=== PATIENT | male | born 1960 | race Caucasian/White ===

== ENCOUNTER 2021-07-19 09:16 | Day surgery (SDC) | payer BC, SELFPAY ==
[2021-07-18 07:16] VITALS: BMI 25.1
--- NOTE | 2021-07-19 09:55 | ANES.PREANE2 ---
Pre-Anesthetic Assessment Height/Weight: Height 1.78 m Weight 79.379 kg Preop Diagnosis: diagnostic Operation Date: 07/19/21 10:45 Proposed Procedures p EGD 82010/22492/r10.12 LEFT UPPER QUAD PAIN/12.11(Not Applicable) - Thai Samuel MD s Colonoscopy 65979(Not Applicable) - Thai Samuel MD Familial anesthetic complications: PONV Last intake: > 8 hrs Social No alcohol and No tobacco Exam alert, oriented x 3, clear to auscultation bilaterally and regular rate & rhythm Airway Mallampati: Class II Dentition: full Pulmonary Collapsed lung as teenager (spontaneous ptx) CV/HEM None reported None reported Hepatic None reported GI Sensitive stomach Metabolic None reported Musc/skel None reported Neuropsych None reported Anesthetic Plan ASA status: 1 Anesthesia: MAC Risk of > 500 ml blood loss (7ml/kg in children): No Medications/Allergies Home Medications Medication Instructions Recorded Confirmed Last Taken Type tamsulosin 0.4 mg capsule 0.4 mg PO DAILY 06/16/21 07/18/21 Unknown History Allergies Allergy/AdvReac Type Severity Reaction Status Date / Time No Known Allergies Allergy Unverified 06/16/21 09:35 [facility] Anesthesia Medical History Hyperlipidemia Surgical History History of colonoscopy History of inguinal hernia repair, bilateral Social History Smoking and tobacco status: never smoked Data Anesthesia Cardiac Studies: No Data to Display
[2021-07-19 10:11] VITALS: BP 110/82; PULSE 80; RESP 18; TEMP 36; O2SAT 96
[2021-07-19] MEDS: sodium chloride 0.9% 1,000 ML 30 ML IV (10:24)
--- NOTE | 2021-07-19 10:37 | PC.NURSE ---
tap water enema given per Dr Samuel, 700mL, pt had BM within 2 to 5 min after enema was given
--- NOTE | 2021-07-19 11:08 | W.PM.OPSFHP ---
Same Day Surgery H&P Indication for Procedure/HPI DATE OF PROCEDURE: July 19, 2021 CHIEF COMPLAINT/INDICATIONFOR SURGICAL PROCEDURE: eg/colon PREOP DIAGNOSIS: diagnostic PLANNED PROCEDURE: Operation Date: 07/19/21 10:45 Proposed Procedures p EGD 70187/80263/r10.12 LEFT UPPER QUAD PAIN/12.11(Not Applicable) - Thai Samuel MD s Colonoscopy 60363(Not Applicable) - Thai Samuel MD Medications/Allergies* Home Medications Medication Instructions Recorded Confirmed Type tamsulosin 0.4 mg capsule 0.4 mg PO DAILY 06/16/21 07/19/21 History Allergies/Adverse Reactions Allergy/AdvReac Type Severity Reaction Status Date / Time No Known Allergies Allergy Unverified 06/16/21 09:35 Current Medications: Generic Name Dose Route Start Last Admin Trade Name Freq PRN Reason Stop Dose Admin Sodium Chloride 1,000 mls @ 30 mls/hr 07/19/21 09:30 07/19/21 10:24 Sodium Chloride 0.9% IV 07/20/21 09:29 30 mls/hr .Q24H TIEN Administration Pertinent History/Comorbid Conditions* Medical History (Updated 06/16/21 @ 09:48 by Thai Samuel MD) Hyperlipidemia Surgical History (Updated 06/16/21 @ 09:48 by Thai Samuel MD) History of colonoscopy History of inguinal hernia repair, bilateral Social History Smoking and tobacco status: never smoked Pertinent Exam Findings alert, oriented x 3 and regular rate & rhythm Recommendations Surgery/Procedure today Coding Level of Care Code Acute Blackjack Dealer for Garret Lopez
[2021-07-19 11:29] VITALS: BP 113/82; PULSE 72; RESP 18; TEMP 36.1; O2SAT 94
[2021-07-19 11:45] VITALS: BP 127/79; PULSE 66; RESP 16; O2SAT 97
--- NOTE | 2021-07-19 12:00 | ANE.PACU2 ---
Inpatient post-anesthesia follow up: Airway intact: Yes Vital signs: Temperature 97 F Pulse Rate 66 Respiratory Rate 16 Blood Pressure 127/79 Pulse Oximetry 97 Oxygen Delivery Me thod Room Air Oxygen Flow Rate Fraction of Inspir ed Oxygen Hydration adequate: Yes Nausea and vomiting: No Pain level: 1 Mental status: Baseline
== END 2021-07-19 12:05 | disposition home or self-care (01) ==
PROVIDERS: PCP Family Medicine; Visit Provider Surgery
PROC: 0DJ08ZZ Inspection of Upper Intestinal Tract, Via Natural or Artificial Opening Endoscopic (ICD-10-PCS; CPT 43235; principal; 2021-07-19 10:45)
PROC: 0DJD8ZZ Inspection of Lower Intestinal Tract, Via Natural or Artificial Opening Endoscopic (ICD-10-PCS; CPT 45378; 2021-07-19 10:45)
DX: R10.12 Left upper quadrant pain (principal); E78.5 Hyperlipidemia, unspecified; K57.30 Diverticulosis of large intestine without perforation or abscess without bleeding; K29.70 Gastritis, unspecified, without bleeding
CPT/HCPCS: 43239; 45378; 88305; 88342; J2704; J7030

== ENCOUNTER → 2021-10-05 16:28 | Outpatient (BNVA) | payer BC, SELFPAY | PROVIDERS: PCP Family Medicine; Visit Provider Family Medicine | DX: R10.11 Right upper quadrant pain (principal) | CPT/HCPCS: 80053; 83690; 85025 ==

== ENCOUNTER 2021-10-06 17:02 | Outpatient (CLI) | payer BC, SELFPAY ==
--- NOTE | 2021-10-06 17:08 | USR_ITS ---
PROCEDURE INFORMATION: Exam: US Abdomen, Limited; Right Upper Quadrant Exam date and time: 10/06/2021 5:13 PM Age: 61 years old Clinical indication: Abdominal pain; Acute; Additional info: Abdomen pain right upper quadrant TECHNIQUE: Imaging protocol: Real time ultrasound of the abdomen with image documentation. Limited exam focused on the right upper quadrant. COMPARISON: No relevant prior studies available. FINDINGS: Liver: Normal. No masses. Gallbladder: Punctate cholelithiasis and debris noted in the gallbladder neck. There is no gallbladder wall thickening. Biliary ducts: Normal. No stones. No dilation. Pancreas: Visualized pancreas is unremarkable. Right kidney: The right kidney measures 9.1 cm in length. Renal cortical echogenicity is within normal limits. No mass. No hydronephrosis. US/US abdomen limited [id number] IMPRESSION: Punctate cholelithiasis and debris noted in the gallbladder neck. No sonographic findings to suggest acute cholecystitis.
== END 2021-10-06 17:03 | disposition home or self-care (01) ==
LOC: RAD 17:04
PROVIDERS: PCP Family Medicine; Visit Provider Family Medicine
DX: K80.20 Calculus of gallbladder without cholecystitis without obstruction (principal); R10.11 Right upper quadrant pain
CPT/HCPCS: 76705

== ENCOUNTER → 2021-10-10 11:27 | Outpatient (BNVA) | payer BC, SELFPAY | PROVIDERS: PCP Family Medicine; Visit Provider Family Medicine | DX: R10.11 Right upper quadrant pain (principal) | CPT/HCPCS: 80053; 83690; 85025 ==

== ENCOUNTER → 2021-10-12 12:02 | Outpatient (BNVA) | payer BC, SELFPAY | PROVIDERS: PCP Family Medicine; Visit Provider Family Medicine | DX: R10.11 Right upper quadrant pain (principal) | CPT/HCPCS: 80053 ==

== ENCOUNTER 2021-10-19 12:34 | Outpatient (CLI) | payer BC, SELFPAY ==
--- NOTE | 2021-10-19 12:41 | CT_ITS ---
WS: [id number] CT ABDOMEN PELVIS TECHNIQUE: Contrast-enhanced CT of the abdomen and pelvis with coronal and sagittal reformatted image s. CLINICAL INFORMATION: VOMITING/RLQ ABD PAIN/RUQ ABD PAIN COMPARISON: Ultrasound October 06, 2021 DLP: 656.[address] scans at [facility] use at least one of these dose optimization techniques: automated e xposure control; mA and/or kV adjustment per patient size (includes targeted exams where dose is matc hed to clinical indication); or iterative reconstruction. FINDINGS: Mild diffuse gallbladder wall enhancement with slight surrounding induration. Tortuosity and dilatati on of the cystic duct. Findings suspicious for acute cholecystitis. Dilatation of the common hepatic duct and proximal common bile duct. No visualized obstructing calculi but recommend further evaluatio n with MRCP. Common bile duct measures 6 to 7 mm. Tiny calculi described on prior ultrasound are not well visualized. Small amount of edema extending about the pancreatic head and C-loop of the duodenum with fluid likely reactive. Recommend correlation with pancreatic enzyme studies. Circumferential wall thickening with enhancement involving the distal stomach at the antrum extending into the pylorus and proximal duodenum may be related to gastritis/duodenitis. This can be followed up with endoscopy. Lung bases are well aerated. Normal portal vein and splenic vein. Adrenal glands are normal. No hydro nephrosis in either kidney. Normal renal parenchymal enhancement. Bilateral renal cysts. Normal caliber abdominal aorta. Celiac and SMA are patent. Tiny fat-containing umbilical hernia. Appendix RIGHT lower quadrant appears unremarkable. Sigmoid diverticulosis. No evidence of acute radiculitis. CT/CT abdomen pelvis w con* [id number] IMPRESSION: 1. Diffuse gallbladder wall thickening with peripheral enhancement and dilatat ion of the cystic duct suspicious for acute cholecystitis. 2. Mild dilatation of the hepatic duct and proximal common bile duct although no visualized obstructing calculi. Recommend further evaluation with MRCP. 3. Inflammatory stranding and edema about the pancreatic head and C-loop of th e duodenum. Recommend correlation with pancreatic enzymes for pancreatitis. Thi s may be reactive to the gallbladder. 4. Circumferential wall thickening with enhancement involving the distal stoma ch at the antrum extending into the pylorus and proximal duodenum may be relate d to gastritis/duodenitis. This can be followed up with endoscopy. 5. No hydronephrosis. Bilateral renal cysts. 6. Sigmoid diverticulosis. No evidence of acute radiculitis. 7. Enlarged prostate measuring 4.8 cm. Recommend correlation PSA Message LEFT for Bipin Knott MD at 10/19/2021 2:40PM.
[2021-10-19] MEDS: iohexol 300 mg/mL 100 mL Btl IV (13:21)
== END 2021-10-19 12:35 | disposition home or self-care (01) ==
LOC: RAD 12:34
PROVIDERS: PCP Family Medicine; Visit Provider Family Medicine
DX: R11.10 Vomiting, unspecified (principal); R10.31 Right lower quadrant pain; R10.11 Right upper quadrant pain
CPT/HCPCS: 74177

== ENCOUNTER 2021-10-19 16:00 | Inpatient (IN) | payer BC, SELFPAY ==
[2021-10-19 16:15] VITALS: BP 122/82; PULSE 95; RESP 18; TEMP 36.8; O2SAT 95
--- NOTE | 2021-10-19 16:38 | W.ED.ABDPA2 ---
Documented by User: Cameron Bales DO 10/20/21 06:48 HPI - Abdominal Pain General: Chief Complaint: Abdominal Pain Stated Complaint: abd pain Time Seen by Provider: 10/19/21 16:11 Source: patient Mode of arrival: ambulatory Limitations: no limitations History of Present Illness: 61-year-old male presents emergency room complaining of epigastric right upper quadrant abdominal pain. Dr. Jameson had called me about him on before he arrived. They have been evaluating him an outpatient basis for biliary colic. He previously had a imaging study done that was negative his symptoms have been waxing and waning last few weeks with some acholic stools a lot of nausea and vomiting. Last day or 2 it is gotten significantly worse particularly the pain he has not noticed any trigger foods although he has tried to avoid certain foods without any particular success. He denies any medic easy melena hematemesis coffee-ground emesis no dysuria urgency or frequency CT done today showed acute pancreatitis with dilation of the proximal common bile duct and the hepatic duct along with acute cholecystitis. Dr. Knott directed the patient to the emergency room for further evaluation potential surgical consultation pending results of an MRCP MD elicited complaint: abdominal pain Pertinent past history: other (Cholelithiasis, pancreatitis acute cholecystitis) Onset (ago): week(s) Pain Consistency: intermittent Location: RUQ Severity: moderate Quality: cramping Radiation: none Migration to: no migration Exacerbating factors: nothing Relieving factors: nothing Associated Symptoms: Reports change in stool character (Intermittent acholic stools), GI cramping, nausea and vomiting; Denies anorexia, belching, bloating, change in bowel habits, chills, coffee ground emesis, constipation, diarrhea, dyspepsia, dysuria, excessive flatus, fever(s), heartburn, hematochezia, hematuria, hematemesis, fecal incontinence, loose stools, melena, poor appetite and syncope Review of Systems Const: Reports: malaise; Denies: fever(s), chills or fatigue Card: Denies: chest pain, palpitations or syncope GI: Reports: abdominal pain, nausea, vomiting, GI cramping and change in stool character (Intermittent acholic stools); Denies: hematemesis, coffee ground emesis, heartburn, diarrhea, constipation, bloating, belching, excessive flatus, fecal incontinence, change in bowel habits, hematochezia or melena : Denies: flank pain, difficulty urinating, dysuria, urinary frequency, urinary urgency or hematuria PFSH ED PFSH: Medical History Hyperlipidemia Surgical History H/O esophagogastroduodenoscopy (07/19/21) History of colonoscopy (07/19/21) History of inguinal hernia repair, bilateral Family History Other CAD (coronary artery disease) Lymphoma Social History Smoking and tobacco status: never smoked Alcohol intake: former Substance/Drug Use: never Lives independently: Yes Household members: spouse Marital status: Current occupational status: retired Physical Exam Const: GENERAL APPEARANCE: cooperative ORIENTATION/CONSCIOUSNESS: Yes awake, Yes oriented to person, Yes oriented to place and Yes oriented to time HENMT: COMMON NORMALS: normocephalic, atraumatic and hearing grossly normal bilaterally HEAD & SCALP: normocephalic and atraumatic Neck/C-Spine: COMMON NORMALS: no JVD Resp: COMMON NORMALS: normal respiratory effort, No retractions, No use of accessory muscles and clear to auscultation bilaterally AUSCULTATION: clear to auscultation bilaterally Cardio: COMMON NORMALS: no JVD, regular rate, regular rhythm and No murmurs present (Cardio) RATE: regular rate RHYTHM: regular rhythm GI: COMMON NORMALS: No hepatosplenomegaly present AUSCULTATION: Yes normoactive bowel sounds PALPATION: Yes Tenderness to palpation present (GI) Details: RUQ, No Guarding due to palpation present (GI) and Yes No hepatosplenomegaly present Extremity: COMMON NORMALS: normal to inspection, capillary refill normal, no clubbing, cyanosis or edema, no calf tenderness and no pedal edema Neuro: SENSORIUM/ORIENTATION: Yes oriented to person, Yes oriented to place and Yes oriented to time Skin: COMMON NORMALS: no rashes or lesions noted GENERAL SKIN EXAM: no rashes or lesions noted Course Vital Signs: Vital signs: Vital Signs Temperature 98.3 F 10/20/21 04:00 Pulse Rate 72 10/20/21 04:00 Respiratory Rate 18 10/20/21 04:00 Blood Pressure 97/61 10/20/21 04:00 Pulse Oximetry 94 10/20/21 04:00 MDM - Abdominal Pain Medical Decision Making Care signed out to Dr. Jay at change of shift. See final notes for diagnosis and disposition. Patient presents with abdominal pain he is found to have pancreatitis along with cholecystitis. His MRCP here is showed no signs of common bile duct thickening no signs of stone in the duct. I did speak to surgeon on-call along with hospitalist will admit at this time. Lab Data : 10/19/21 16:45 10/19/21 16:45 Labs/Radiology: Radiology Impressions Cholangiopancreatography MRI 10/19/21 16:39 IMPRESSION: 1. Cholelithiasis 2. Cholecystitis 3. No stones are seen in the common bile duct. 4. Suspect pancreatitis. Correlate with appropriate laboratory studies. COMMENTS: Consistent with the [employer]'s Incidental Findings Committee white paper (J Am Lj Radiol 2018): Any incidental renal lesion less than 1 cm or classified as too small to characterize, or any incidental cystic renal lesion characterized as simple-appearing, is likely benign. No follow-up imaging is recommended for these lesions per consensus recommendations based on imaging criteria. Laboratory Results WBC 8.9 10^3/uL (4.0-10.0) 10/19/21 16:45 RBC 5.22 10^6/uL (4.1-5.3) 10/19/21 16:45 Hgb 16.1 g/dL (11.7-16.6) 10/19/21 16:45 Hct 47.0 % (42.0-52.0) 10/19/21 16:45 MCV 90.0 fl (80-94) 10/19/21 16:45 MCH 30.8 pg (28.0-34.0) 10/19/21 16:45 MCHC 34.3 g/dL (30.0-36.0) 10/19/21 16:45 RDW 12.1 % (12.1-15.1) 10/19/21 16:45 Plt Count 315 10^3/cmm (130-400) 10/19/21 16:45 MPV 10.4 fL (7.4-10.4) 10/19/21 16:45 Neut % (Auto) 66.8 % 10/19/21 16:45 Lymph % (Auto) 25.5 % 10/19/21 16:45 Wolfe % (Auto) 6.4 % 10/19/21 16:45 Eos % (Auto) 0.7 % 10/19/21 16:45 Baso % (Auto) 0.3 % 10/19/21 16:45 Neut # (Auto) 5.90 10^3/uL (1.8-7.7) 10/19/21 16:45 Lymph # (Auto) 2.3 10^3/uL (0.8-4.8) 10/19/21 16:45 Wolfe # (Auto) 0.6 10^3/uL (0.2-0.9) 10/19/21 16:45 Eos # (Auto) 0.1 10^3/uL (0.0-0.8) 10/19/21 16:45 Baso # (Auto) 0.0 10^3/uL (0.0-0.1) 10/19/21 16:45 Nucleated RBC % (auto) 0 % 10/19/21 16:45 Nucleated RBCs # 0.0 /100WBC 10/19/21 16:45 Sodium 137 mmol/L (136-145) 10/19/21 16:45 Potassium 4.4 mmol/L (3.5-5.1) 10/19/21 16:45 Chloride 99 mmol/L (98-107) 10/19/21 16:45 Carbon Dioxide 23 mmol/L (22-29) 10/19/21 16:45 Anion Gap 19.4 (5-19) H 10/19/21 16:45 BUN 19 mg/dL (8-23) 10/19/21 16:45 Creatinine 0.9 mg/dL (0.7-1.2) 10/19/21 16:45 GFR Calculation 85.2 mL/min (90-130) L 10/19/21 16:45 Glucose 96 mg/dL (65-115) 10/19/21 16:45 Calculated Osmolality 286 mOsm/kg (285-295) 10/19/21 16:45 Calcium 9.5 mg/dL (8.5-10.5) 10/19/21 16:45 Total Bilirubin 1.4 mg/dL (0.15-1.2) H 10/19/21 16:45 AST 364 U/L (0-40) H 10/19/21 16:45 ALT 682 U/L (0-41) H 10/19/21 16:45 Alkaline Phosphatase 405 IU/L (40-130) H 10/19/21 16:45 Total Protein 7.8 g/dL (6.6-8.7) 10/19/21 16:45 Albumin 4.7 g/dL (3.5-5.2) 10/19/21 16:45 Globulin 3.1 g/dL (1.3-4.6) 10/19/21 16:45 Lipase 2785 U/L (13-60) H 10/19/21 16:45 Urine Color Yellow (Yellow) 10/19/21 16:30 Urine Appearance Clear (CLEAR) 10/19/21 16:30 Urine pH 5 (5-7) 10/19/21 16:30 Ur Specific [place] 1.005 (1.005-1.030) 10/19/21 16:30 Urine Protein Neg (Negative) 10/19/21 16:30 Urine Glucose (UA) Norm (Normal) 10/19/21 16:30 Urine Ketones 2+ (Negative) H 10/19/21 16:30 Urine Blood 2+ (Negative) H 10/19/21 16:30 Urine Nitrate Negative (Negative) 10/19/21 16:30 Urine Bilirubin 1+ (Negative) H 10/19/21 16:30 Urine Urobilinogen 1 mg/dL (Negative) H 10/19/21 16:30 Ur Leukocyte Esterase Negative (Negative) 10/19/21 16:30 Urine RBC 5-10 /hpf (0-2) H 10/19/21 16:30 Urine WBC 0-4 /hpf (0-5) H 10/19/21 16:30 Ur Squamous Epith Cells 0-4 /hpf (0-5) H 10/19/21 16:30 Amorphous Sediment Not Reportable 10/19/21 16:30 Urine Bacteria None /hpf (NONE) 10/19/21 16:30 Discharge Plan Discharge Patient Disposition: Admitted As Inpatient Admit Provider: Douglas Yusuf Clinical Impression: Pancreatitis, Cholecystitis Condition: Stable Coding Level of Care Code ED [place] Management Professor for Chg Fwd Exam Comprehensive Documented by User: Diandra Jay MD 10/19/21 20:22 HPI - Abdominal Pain General: Chief Complaint: Abdominal Pain Stated Complaint: abd pain Time Seen by Provider: 10/19/21 16:11 PFSH ED PFSH: Medical History Hyperlipidemia Surgical History H/O esophagogastroduodenoscopy (07/19/21) History of colonoscopy (07/19/21) History of inguinal hernia repair, bilateral Family History Other CAD (coronary artery disease) Lymphoma Social History Smoking and tobacco status: never smoked Alcohol intake: former Substance/Drug Use: never Lives independently: Yes Household members: spouse Marital status: Current occupational status: retired Course Vital Signs: Vital signs: Vital Signs Temperature 98.3 F 10/20/21 04:00 Pulse Rate 72 10/20/21 04:00 Respiratory Rate 18 10/20/21 04:00 Blood Pressure 97/61 10/20/21 04:00 Pulse Oximetry 94 10/20/21 04:00 MDM - Abdominal Pain Medical Decision Making Patient presents with abdominal pain he is found to have pancreatitis along with cholecystitis. His MRCP here is showed no signs of common bile duct thickening no signs of stone in the duct. I did speak to surgeon on-call along with hospitalist will admit at this time. Lab Data : 10/19/21 16:45 10/19/21 16:45 Labs/Radiology: Radiology Impressions Cholangiopancreatography MRI 10/19/21 16:39
--- NOTE | 2021-10-19 16:39 | MRR_ITS ---
PROCEDURE INFORMATION: Exam: MR Abdomen Without Contrast Exam date and time: 10/19/2021 5:40 PM Age: 61 years old Clinical indication: Abdominal pain; Generalized; Additional info: Dialaiton cbd, cholelithiasis, cholecystitis TECHNIQUE: Imaging protocol: Magnetic resonance imaging of the abdomen without contrast. COMPARISON: CT abdomen pelvis w con* [id number] 10/19/2021 12:49 PM FINDINGS: Liver: There is no focal abnormality within the liver. Gallbladder and bile ducts: There are multiple small gallstones within the gallbladder as seen on prior ultrasound. There is also small stone seen in the cystic duct. Distal common bile duct measures approximately 6 mm is which is not unusual for the patient's age. No common duct stones are identified. There is gallbladder wall thickening up to 6 mm and some minimal pericholecystic fluid. These findings are worrisome for acute cholecystitis. Pancreas: There is some minimal fluid like signal adjacent to the head of the pancreas and along Gerota's fascia on the right. This is worrisome for acute pancreatitis. Please correlate with appropriate laboratory studies. Spleen: The spleen is normal. Adrenal glands: The adrenal glands are normal. Kidneys and ureters: There is a 3 cm sized septated cyst with single thin septation in the anterior left kidney and a 1 cm size cyst in the mid left kidney. There is also a 6 mm benign simple cyst in the right kidney. No further workup recommended. Stomach and bowel: Visualized stomach and intestines are unremarkable. Intraperitoneal space: No free fluid. Vasculature: No abdominal aortic aneurysm. Bones/joints: Unremarkable. Soft tissues: Unremarkable. MR/MR MRCP [id number] IMPRESSION: 1. Cholelithiasis 2. Cholecystitis 3. No stones are seen in the common bile duct. 4. Suspect pancreatitis. Correlate with appropriate laboratory studies. COMMENTS: Consistent with the [employer]'s Incidental Findings Committee white paper (J Am Lj Radiol 2018): Any incidental renal lesion less than 1 cm or classified as too small to characterize, or any incidental cystic renal lesion characterized as simple-appearing, is likely benign. No follow-up imaging is recommended for these lesions per consensus recommendations based on imaging criteria.
[2021-10-19] MEDS: morphine 4 mg/mL SDV 1 mL IVP (16:46)
[2021-10-19] MEDS: sodium chloride 0.9% 1,000 ML 999 ML IV (16:47)
[2021-10-19] MEDS: ondansetron 2 mg/ML SDV 2 mL 4 MG IVP (16:47)
[2021-10-19 16:49] VITALS: BP 117/74; PULSE 94; RESP 16; O2SAT 95
[2021-10-19 17:15] LABS: Basophils % 0.3 %; Eosinophils # 0.1 10^3/uL (0.0-0.8); Eosinophils % 0.7 %; Hemoglobin 16.1 g/dL (11.7-16.6); Lymphocytes # 2.3 10^3/uL (0.8-4.8); Lymphocytes % 25.5 %; Mean Corpuscular HGB Conc 34.3 g/dL (30.0-36.0); Mean Corpuscular Hemoglobin 30.8 pg (28.0-34.0); Mean Platelet Volume 10.4 fL (7.4-10.4); Monocytes # 0.6 10^3/uL (0.2-0.9); Monocytes % 6.4 %; Neutrophils % 66.8 %; Nucleated Red Blood Cells % 0 %; Platelet Count 315 10^3/cmm (130-400); Red Blood Count 5.22 10^6/uL (4.1-5.3); Red Cell Distribution Width 12.1 % (12.1-15.1); White Blood Count 8.9 10^3/uL (4.0-10.0)
[2021-10-19 17:34] LABS: Add Urine Microscopic? YES; Bilirubin Urine 1+ (Negative); Blood Urine 2+ (Negative); Glucose Urine UA Norm (Normal); Ketones Urine 2+ (Negative); Leukocyte Esterase Urine Negative (Negative); Nitrate Urine Negative (Negative); Protein Urine Neg (Negative); Specific Gravity, Urine 1.005 (1.005-1.030); Urine Appearance Clear (CLEAR); Urine Color Yellow (Yellow); Urobilinogen Urine 1 mg/dL (Negative); pH Urine 5 (5-7)
[2021-10-19 17:43] LABS: Alanine Aminotransferase 682 U/L (0-41); Albumin Level 4.7 g/dL (3.5-5.2); Alkaline Phosphatase 405 IU/L (40-130); Anion Gap 19.4 (5-19); Aspartate Amino Transferase 364 U/L (0-40); Blood Urea Nitrogen 19 mg/dL (8-23); Calcium 9.5 mg/dL (8.5-10.5); Carbon Dioxide 23 mmol/L (22-29); Chloride 99 mmol/L (98-107); Globulin 3.1 g/dL (1.3-4.6); Glomerular Filtration Rate 85.2 mL/min (90-130); Glucose 96 mg/dL (65-115); Osmolality Calculated 286 mOsm/kg (285-295); Potassium 4.4 mmol/L (3.5-5.1); Sodium 137 mmol/L (136-145); Total Bilirubin 1.4 mg/dL (0.15-1.2); Total Protein 7.8 g/dL (6.6-8.7)
[2021-10-19 17:49] LABS: Add Urine Culture? No; Squamous Epithelial Cell Urine 0-4 /hpf (0-5); WBC Urine 0-4 /hpf (0-5)
[2021-10-19 17:59] LABS: Lipase 2785 U/L (13-60)
[2021-10-19] MEDS: piperacillin-tazobactam 3.375 GM in sodium chloride 0.9% (plus) 50 ML IV (20:56)
[2021-10-19 21:03] VITALS: BP 107/81; PULSE 65; RESP 16; O2SAT 98
--- NOTE | 2021-10-19 21:26 | PM.HP ---
Providers/Chief Complaint Admitting Physician: Douglas Yusuf Primary Care Provider: Bipin Knott MD Chief Complaint: abd pain History of Present Illness Pleasant 61-year-old gentleman presenting due to recurrent episodes of nausea and vomiting, as well as recurrent episodes of abdominal pain, mostly right upper quadrant, although this morning was also having cramping and lower abdominal pain. He has undergone evaluation at his primary provider's office for biliary colic, had previously undergone ultrasound on 10/06 of right upper quadrant with finding of punctate cholelithiasis and debris noted in the gallbladder neck. No sonographic findings to suggest acute cholecystitis. Earlier today he also had CT abdomen pelvis with finding of diffuse gallbladder wall thickening with peripheral enhancement and dilation of the cystic duct suspicious for acute cholecystitis. Mild ovation of hepatic duct and proximal common bile duct although no visualized obstructing calculi. Recommended MRCP. Inflammatory stranding and edema around pancreatic head and C-loop of the duodenum. Recommend correlation for pancreatitis. Could be reactive secondary to gallbladder. Progression of wall thickening with enhancement involving distal stomach and antrum extending into pylorus and proximal duodenum may be related to gastritis/duodenitis. Can be followed up with endoscopy. No hydronephrosis. Bilateral renal stones. Segmental sclerosis. Enlarged prostate measuring 4.8 cm recommend correlation with PSA. On arrival here in ER additionally underwent blood work, with finding of elevated lipase 2785. Underwent MRCP which showed cholelithiasis, cholecystitis. No stones seen in the common bile duct. Suspected pancreatitis. UA with microscopic hematuria, 5-10 RBC. 1+ bilirubin. 1 urobilinogen. Denies any recent alcohol intake. Has history of heavy alcohol intake when he was young, but not recently. Had 2 large beers when traveling a month ago. Had an episode of vomiting as far back as end of July. Remembers that beginning of July he had upper and lower endoscopy. Review of Systems Const: Denies: fever(s), chills, body aches or malaise Eyes: Denies: change in vision, eye discomfort or eye redness ENMT: Denies: throat pain, oral sores or ear or mastoid pain Card: Denies: chest pain, edema, pre-syncope or dyspnea on exertion Resp: Denies: dyspnea, productive cough, change in phlegm color or hemoptysis GI: Reports: abdominal pain, nausea, vomiting and diarrhea (recurring chronically, sensitive to bad food); Denies: constipation, hematochezia or melena : Denies: flank pain, difficulty urinating, urinary frequency or hematuria Musc: Denies: back pain, joint swelling or joint redness Skin/Breast: Denies: rash or new lesions Neuro: Denies: headache(s), numbness in extremities, weakness in extremities, dizziness, confusion or seizure-like activity Endo: Denies: polyuria or polydipsia Vignesh/Lymph: Denies: easy bleeding or tender lymph nodes All/Imm: Denies: urticaria or tongue swelling Medications/Allergies Home Medications Medication Instructions Recorded Confirmed Last Taken Type tamsulosin 0.4 mg capsule 0.4 mg PO DAILY 06/16/21 10/19/21 07/17/21 History hydrocodone 5 mg-acetaminophen 325 1 tab PO Q4H PRN 10/19/21 10/19/21 Unknown History mg tablet ondansetron HCl 4 mg tablet 4 mg PO Q4H 10/19/21 10/19/21 Unknown History pantoprazole 40 mg tablet,delayed 40 mg PO DAILY 10/19/21 10/19/21 Unknown History release Allergies Allergy/AdvReac Type Severity Reaction Status Date / Time No Known Allergies Allergy Verified 10/19/21 16:59 PFSH Acute PFSH: Medical History Hyperlipidemia Surgical History H/O esophagogastroduodenoscopy (07/19/21) History of colonoscopy (07/19/21) History of inguinal hernia repair, bilateral Family History (Updated 10/19/21 @ 21:30 by Douglas Yusuf MD) Other CAD (coronary artery disease) Lymphoma Social History (Updated 10/19/21 @ 21:30 by Douglas Yusuf MD) Smoking and tobacco status: never smoked Alcohol intake: former Substance/Drug Use: never Lives independently: Yes Household members: spouse Marital status: Current occupational status: retired Vitals/I&O/Wt Last Vital Signs Temp 98.3 F 10/19/21 16:15 Pulse 65 10/19/21 21:03 Resp 16 10/19/21 21:03 BP 107/81 10/19/21 21:03 Pulse Ox 98 10/19/21 21:03 Weight last 48 hrs Weight 78.925 kg Physical Exam Const: COMMON NORMALS: alert GENERAL APPEARANCE: cooperative ORIENTATION/CONSCIOUSNESS: Yes awake HENMT: COMMON NORMALS: normocephalic, EAC's normal, Normal external nose present and moist oral mucous membranes HEAD & SCALP: normocephalic NOSE: Normal external nose present EXTERNAL AUDITORY CANAL: EAC's normal Neck/C-Spine: COMMON NORMALS: no meningeal signs Chest: CHEST: Yes Symmetrical chest wall rise Resp: COMMON NORMALS: clear to auscultation bilaterally AUSCULTATION: clear to auscultation bilaterally Cardio: COMMON NORMALS: regular rate, regular rhythm and No murmurs present (Cardio) RATE: regular rate RHYTHM: regular rhythm GI: COMMON NORMALS: Normal to inspection, nondistended, normoactive bowel sounds present, Soft to palpation and non-tender PALPATION: Yes Soft to palpation and Yes Tenderness to palpation present (GI) Details: RLQ and other (Epigastric) Extremity: COMMON NORMALS: no pedal edema Neuro: COMMON NORMALS: moves all extremities SENSORIUM/ORIENTATION: Yes alert MENINGEAL SIGNS: Yes no meningeal signs Psych: COMMON NORMALS: mental status grossly normal Skin: COMMON NORMALS: no wounds RASHES: no rashes Data : 10/19/21 16:45 10/19/21 16:45 A&P Assessment and plan (1) Cholecystitis: Continue Zosyn. No signs of sepsis at this time. Pending additional surgical evaluation. Status: Acute (2) Pancreatitis: No CBD stones as per MRCP. Additional assessment of management of cholecystitis as above. May have passed stones/sludge. Denies any recent heavy alcohol intake. Discussed with him to avoid alcohol entirely. Has history of heavy alcohol intake in his youth, but not so recently, reports had 2 beers in the last several months. NPO, sips and ice chips for now. Gentle IVF. Pain control, antiemetics. Possibly also some reactive changes secondary to cholecystitis. Is on PPI, had recently had EGD and colonoscopy. We will continue PPI, increased dose for now to twice daily. Status: Acute Attestations Medical Necessity Statement*: Admission of over 2 midnights is anticipated for assessment of management of acute cholecystitis, acute pancreatitis. Coding Level of Care Code Acute Filenet Developer for [facility] Fwd Diagnoses Cholecystitis K81.9 Pancreatitis K85.90
[2021-10-19 21:33] VITALS: BP 124/81; PULSE 64; RESP 17; TEMP 36.5; O2SAT 96
[2021-10-19] MEDS: heparin 5,000 unit/mL INJ 1 mL 5000 UNIT SUBCUT (21:40)
[2021-10-19] MEDS: sodium chloride 0.9% 1,000 ML 75 ML IV (22:40)
[2021-10-19] MEDS: pantoprazole 40 mg SDV IVP (22:59)
[2021-10-20] VITALS (9 sets, daily range): BP systolic 97–113; BP diastolic 61–72; PULSE 60–76; RESP 16–18; TEMP 36.6–36.9; O2SAT 93–97
[2021-10-20] MEDS: piperacillin-tazobactam 3.375 GM in sodium chloride 0.9% (plus) 50 ML IV ×3 (04:22→21:07)
[2021-10-20] MEDS: heparin 5,000 unit/mL INJ 1 mL 5000 UNIT SUBCUT ×3 (05:51→21:13)
--- NOTE | 2021-10-20 06:34 | P.CONIM_ITS ---
Providers/Reason For Consult Consulting Physician/Specialty*: Alfredito Cooper MD Reason for Consult*: Biliary pancreatitis Requesting Physician: Attending Physician: Douglas Yusuf Primary Care Provider: Bipin Knott MD History of Present Illness History of Present Illness Mr. Lalit Cruz is a pleasant 61 year old male presents to the emergency department with intermittent history of nausea and vomiting associated with episodes of abdominal pain mostly in the right upper quadrant. Patient is finding hard time to describe the pain, mostly crampy/dull aching. Does not seem that anything makes it better or worse. Patient denies that the pain is being referred to the back . Yet he does complain of chronic back pain. It seems that the patient has been having ongoing symptoms since last July 2021. Further work-up in the ER was done and showed unremarkable findings regarding laboratory work except for total bilirubin of 1.4, AST 364, ALT 682 and alk phos 405. In addition to a lipase level of 2785. Further imaging was done form of a CT of the abdomen and pelvis with contrast that showed gallbl adder wall thickness and dilation of the cystic duct suspicious for acute cholecystitis. With mild dilation of the hepatic duct and proximal common bile duct without evidence of obstructing stones. In addition to circumferential wall thickening with enhancement involving the distal stomach and the antrum extending to the pylorus and proximal duodenum may be related to gastritis and duodenitis. MRCP was obtained and did show There is also small stone seen in the cystic duct.? Distal common bile duct measures approximately 6 mm is which is not unusual for the patient's age.? 1. Cholelithiasis 2. Cholecystitis 3. No stones are seen in the common bile duct. 4. Suspect pancreatitis. Correlate with appropriate laboratory studies. ? General surgery was consulted for concern of biliary pancreatitis Review of Systems General: Reports: 10 or more systems reviewed and unremarkable except in HPI and below Medications/Allergies Home Medications Medication Instructions Recorded Confirmed Last Taken Type tamsulosin 0.4 mg capsule 0.4 mg PO DAILY 06/16/21 10/19/21 07/17/21 History hydrocodone 5 mg-acetaminophen 325 1 tab PO Q4H PRN 10/19/21 10/19/21 Unknown History mg tablet ondansetron HCl 4 mg tablet 4 mg PO Q4H 10/19/21 10/19/21 Unknown History pantoprazole 40 mg tablet,delayed 40 mg PO DAILY 10/19/21 10/19/21 Unknown History release Allergies Allergy/AdvReac Type Severity Reaction Status Date / Time No Known Allergies Allergy Verified 10/20/21 07:21 Current Medications Generic Name Dose Route Start Last Admin Trade Name Freq PRN Reason Stop Dose Admin Heparin Sodium (Porcine) 5,000 unit 10/19/21 21:45 10/20/21 05:51 Heparin 5,000 Unit/Ml Inj 1 Ml SUBCUT 5,000 unit Q8H TIEN Administration Piperacillin Sod/Tazobactam 50 mls @ 12.5 mls/hr 10/20/21 04:00 10/20/21 04:22 Sod 3.375 gm/ Sodium Chloride IV 12.5 mls/hr Q8H TIEN Administration Protocol Sodium Chloride 1,000 mls @ 75 mls/hr 10/19/21 21:45 10/19/21 22:40 Sodium Chloride 0.9% IV 75 mls/hr .[id number] TIEN Administration Pantoprazole Sodium 40 mg 10/19/21 21:45 10/19/21 22:59 Pantoprazole 40 Mg Sdv IVP 40 mg Q12H TIEN Administration PFSH Acute PFSH: Medical History Hyperlipidemia Surgical History H/O esophagogastroduodenoscopy (07/19/21) History of colonoscopy (07/19/21) History of inguinal hernia repair, bilateral Family History Other CAD (coronary artery disease) Lymphoma Social History Smoking and tobacco status: never smoked Alcohol intake: former Substance/Drug Use: never Lives independently: Yes Household members: spouse Marital status: Current occupational status: retired Vitals/I&O/Wt Last Vital Signs Temp 98.3 F 10/20/21 04:00 Pulse 72 10/20/21 04:00 Resp 18 10/20/21 04:00 BP 97/61 10/20/21 04:00 Pulse Ox 94 10/20/21 04:00 10/19/21 10/19/21 10/20/21 14:59 22:59 06:59 Output Total 600 / 600 Balance -600 / -600 Weight last 48 hrs Weight 173 lb 3.2 oz Weight 174 lb Physical Exam Const: COMMON NORMALS: no acute distress and patient oriented x3 GENERAL APPEARANCE: cooperative ORIENTATION/CONSCIOUSNESS: Yes awake, Yes oriented to person, Yes oriented to place and Yes oriented to time HENMT: COMMON NORMALS: normocephalic HEAD & SCALP: normocephalic Eye: COMMON NORMALS: Equal, round and reactive pupils present and no scleral icterus PUPIL: Yes Equal, round and reactive pupils present Lymph: LYMPHATIC: no lymphadenopathy noted Chest: COMMONS NORMALS: normal inspection of the chest Resp: COMMON NORMALS: normal respiratory effort and clear to auscultation bilaterally AUSCULTATION: clear to auscultation bilaterally Cardio: COMMON NORMALS: S1 normal heart sound present and S2 normal heart sound present; negative for No murmurs present (Cardio) HEART SOUNDS: S1 normal heart sound present and S2 normal heart sound present GI: COMMON NORMALS: Soft to palpation; negative for No hepatosplenomegaly present INSPECTION: Yes normal to inspection PALPATION: Yes Soft to palpation, No Firmness to palpation present (GI), Yes Tenderness to palpation present (GI) Details: RUQ, No Guarding due to palpation present (GI), No Rigid due to palpation and No No hepatosplenomegaly present Neuro: COMMON NORMALS: patient oriented x3 SENSORIUM/ORIENTATION: Yes oriented to person, Yes oriented to place and Yes oriented to time Psych: COMMON NORMALS: mental status grossly normal Skin: COMMON NORMALS: no rashes or lesions noted GENERAL SKIN EXAM: no rashes or lesions noted Data : 10/20/21 06:34 10/20/21 06:34 A&P Assessment and plan (1) Biliary acute pancreatitis: After thorough history after thorough history physical examination and reviewing the images with my personal interpretation of the CT and MRI. Likely the patient does have underlying biliary pancreatitis and associated gastritis duodenitis probably related to the pancreatitis. IV fluid resuscitation, will give a bolus of LR 1 L now.noticed concentrated urine at the bedside in the urinal PPI therapy Repeated physical exam Strict I's and O's We will follow on the lipase trend in LFTs with the plan to perform laparoscopic cholecystectomy during the same hospitalization. Assurance and education All questions have been answered and all concerns have been addressed to patient's satisfaction. You for consulting general surgery to participate taking care of of Mr. Cruz Status: Acute Consult Attestations Medical Necessity Statement: Patient likely will require inpatient hospitalization passing 2 midnights for appropriate resuscitation and repeated physical exam Coding Level of Care Code Acute Regulatory Affairs Coordinator for [facility] Fwd Exam Comprehensive Diagnoses Biliary acute pancreatitis K85.10
[2021-10-20 07:09] LABS: Basophils % 0.5 %; Eosinophils # 0.2 10^3/uL (0.0-0.8); Hematocrit 41.9 % (42.0-52.0); Hemoglobin 14.4 g/dL (11.7-16.6); Lymphocytes # 2.3 10^3/uL (0.8-4.8); Lymphocytes % 29.1 %; Mean Corpuscular HGB Conc 34.4 g/dL (30.0-36.0); Mean Corpuscular Hemoglobin 30.8 pg (28.0-34.0); Mean Corpuscular Volume 89.5 fl (80-94); Mean Platelet Volume 10.4 fL (7.4-10.4); Monocytes # 0.7 10^3/uL (0.2-0.9); Monocytes % 8.2 %; Neutrophils # 4.72 10^3/uL (1.8-7.7); Nucleated Red Blood Cells % 0 %; Platelet Count 261 10^3/cmm (130-400); Red Blood Count 4.68 10^6/uL (4.1-5.3); Red Cell Distribution Width 12.2 % (12.1-15.1)
[2021-10-20 07:29] LABS: Alanine Aminotransferase 443 U/L (0-41); Alkaline Phosphatase 315 IU/L (40-130); Aspartate Amino Transferase 157 U/L (0-40); Blood Urea Nitrogen 18 mg/dL (8-23); Calcium 8.6 mg/dL (8.5-10.5); Carbon Dioxide 25 mmol/L (22-29); Chloride 102 mmol/L (98-107); Globulin 2.7 g/dL (1.3-4.6); Glomerular Filtration Rate 97.6 mL/min (90-130); Glucose 76 mg/dL (65-115); Osmolality Calculated 287 mOsm/kg (285-295); Sodium 138 mmol/L (136-145); Total Bilirubin 1.4 mg/dL (0.15-1.2); Total Protein 6.7 g/dL (6.6-8.7)
[2021-10-20] MEDS: lactated ringers 1,000 ML 999 ML IV (08:00)
[2021-10-20 08:41] LABS: Lipase 1008 U/L (13-60)
--- NOTE | 2021-10-20 09:34 | PM.PN ---
Subjective Subjective: Patient was seen this morning, he tells me he did not get a lot of sleep last night, his abdominal pain Is well controlled, no fevers, no diarrhea Vitals/I&O/Wt Last Vital Signs Temp 97.9 F 10/20/21 08:00 Pulse 66 10/20/21 08:00 Resp 16 10/20/21 08:00 BP 108/67 10/20/21 08:00 Pulse Ox 94 10/20/21 08:00 10/19/21 10/20/21 10/20/21 22:59 06:59 14:59 Intake Total 1050 / 1050 1050 / 1050 Output Total 600 / 600 Balance 1050 / 1050 -600 / 450 1050 / 1050 Weight last 48 hrs Weight 78.562 kg Weight 78.925 kg Physical Exam Const: COMMON NORMALS: no acute distress and patient oriented x3 Resp: COMMON NORMALS: normal respiratory effort, No retractions, No use of accessory muscles and clear to auscultation bilaterally AUSCULTATION: clear to auscultation bilaterally Cardio: COMMON NORMALS: regular rate, regular rhythm, S1 normal heart sound present and S2 normal heart sound present RATE: regular rate RHYTHM: regular rhythm HEART SOUNDS: S1 normal heart sound present and S2 normal heart sound present GI: COMMON NORMALS: Normal to inspection, nondistended, normoactive bowel sounds present and Soft to palpation PALPATION: Yes Soft to palpation Extremity: COMMON NORMALS: no pedal edema Neuro: COMMON NORMALS: patient oriented x3 Psych: COMMON NORMALS: mental status grossly normal Data : 10/20/21 06:34 10/20/21 06:34 A&P Assessment and plan (1) Cholecystitis: Continue Zosyn. No signs of sepsis at this time. Pending additional surgical evaluation. Status: Acute (2) Pancreatitis: No CBD stones as per MRCP. Additional assessment of management of cholecystitis as above. May have passed stones/sludge. Denies any recent heavy alcohol intake. Discussed with him to avoid alcohol entirely. Has history of heavy alcohol intake in his youth, but not so recently, reports had 2 beers in the last several months. NPO, sips and ice chips for now. Gentle IVF. Pain control, antiemetics. Possibly also some reactive changes secondary to cholecystitis. Is on PPI, had recently had EGD and colonoscopy. We will continue PPI, increased dose for now to twice daily. Status: Acute Attestations Medical Necessity Statement*: Patient requires hospitalization for cholecystitis, pancreatitis Coding Level of Care Code Acute Internal Auditor for [facility] Diagnoses Cholecystitis K81.9 Pancreatitis K85.90
[2021-10-20] MEDS: tamsulosin 0.4 mg Capsule PO (10:28)
[2021-10-20] MEDS: pantoprazole 40 mg SDV IVP ×2 (10:28→21:08)
[2021-10-20] MEDS: sodium chloride 0.9% 1,000 ML 75 ML IV (12:14)
[2021-10-20] MEDS: morphine 4 mg/mL SDV 1 mL 2 MG IVP ×2 (17:00→21:09)
[2021-10-21] VITALS (25 sets, daily range): BP systolic 101–142; BP diastolic 64–91; PULSE 64–89; RESP 14–18; TEMP 36.2–36.8; O2SAT 90–97
[2021-10-21] MEDS: sodium chloride 0.9% 1,000 ML 75 ML IV (01:22)
[2021-10-21 03:40] LABS: Basophils % 0.4 %; Eosinophils # 0.3 10^3/uL (0.0-0.8); Eosinophils % 4.5 %; Hematocrit 40.9 % (42.0-52.0); Hemoglobin 13.2 g/dL (11.7-16.6); Lymphocytes # 1.7 10^3/uL (0.8-4.8); Mean Corpuscular HGB Conc 32.3 g/dL (30.0-36.0); Mean Corpuscular Hemoglobin 30.6 pg (28.0-34.0); Mean Corpuscular Volume 94.7 fl (80-94); Mean Platelet Volume 10.4 fL (7.4-10.4); Monocytes # 0.6 10^3/uL (0.2-0.9); Monocytes % 8.8 %; Neutrophils # 4.44 10^3/uL (1.8-7.7); Neutrophils % 61.9 %; Nucleated Red Blood Cells % 0 %; Platelet Count 234 10^3/cmm (130-400); Red Blood Count 4.32 10^6/uL (4.1-5.3); Red Cell Distribution Width 11.9 % (12.1-15.1); White Blood Count 7.2 10^3/uL (4.0-10.0)
[2021-10-21] MEDS: morphine 4 mg/mL SDV 1 mL 2 MG IVP ×3 (03:45→15:47)
[2021-10-21] MEDS: piperacillin-tazobactam 3.375 GM in sodium chloride 0.9% (plus) 50 ML IV ×3 (03:45→20:23)
[2021-10-21 04:00] LABS: Alanine Aminotransferase 277 U/L (0-41); Albumin Level 3.7 g/dL (3.5-5.2); Alkaline Phosphatase 250 IU/L (40-130); Anion Gap 16.8 (5-19); Aspartate Amino Transferase 68 U/L (0-40); Blood Urea Nitrogen 17 mg/dL (8-23); Calcium 8.4 mg/dL (8.5-10.5); Carbon Dioxide 21 mmol/L (22-29); Chloride 102 mmol/L (98-107); Globulin 2.3 g/dL (1.3-4.6); Glomerular Filtration Rate 85.2 mL/min (90-130); Glucose 63 mg/dL (65-115); Osmolality Calculated 282 mOsm/kg (285-295); Potassium 3.8 mmol/L (3.5-5.1); Sodium 136 mmol/L (136-145); Total Bilirubin 1.2 mg/dL (0.15-1.2)
[2021-10-21] MEDS: heparin 5,000 unit/mL INJ 1 mL 5000 UNIT SUBCUT (05:12)
[2021-10-21 06:42] LABS: Lipase 92 U/L (13-60)
[2021-10-21] MEDS: lactated ringers 1,000 ML 125 ML IV ×2 (06:49→21:27)
--- NOTE | 2021-10-21 07:57 | P.PN_ITS ---
Subjective Subjective: Patient overall feels well yet he does complain of right upper quadrant abdominal pain. Trending down in serum lipase and LFTs. Switched fluids to LR at 125 mL/h as patient has concentrated urine Medications: Reviewed: Yes Vitals/I&O/Wt Last Vital Signs Temp 98.0 F 10/21/21 07:24 Pulse 68 10/21/21 07:24 Resp 16 10/21/21 07:24 BP 101/64 10/21/21 07:24 Pulse Ox 97 10/21/21 07:24 10/20/21 10/21/21 10/21/21 22:59 06:59 14:59 Intake Total 50 / 2100 1050 / 3150 Output Total 975 / 1475 450 / 1925 Balance -925 / 625 600 / 1225 Weight last 48 hrs Weight 178 lb 1.6 oz Weight 173 lb 3.2 oz Weight 174 lb Physical Exam Narrative: Patient is conscious alert oriented X3 No apparent distress BMI 26 Head and neck examination PERRLA no masses no cervical lymphadenopathy no jaundice Abdomen nontender except at the right upper quadrant nondistended soft no organomegaly guarding or rigidity/no signs of peritonitis Extremities no cyanosis no clubbing no edema Data : 10/21/21 03:14 10/21/21 03:14 A&P Assessment and plan (1) Biliary acute pancreatitis: Plan of care; After thorough history physical examination and reviewing the chart and images with my personal intrepreatation.I counseled the patient for laparoscopic cholecystectomy possible open, indications risks including but not limited injury to the common bile duct and/or other viscera,that may require potential future surgical interventions including but not limited to ERCP and or lapa ratomy that may include Hepatobiliary surgery.Benefits and alternatives all discussed with the patient, and patient did agree to proceed accordingly. Patient understands that he has a higher risk of complications due to acuity of the condition associated with pancreatitis. All questions have been answered and all concerns have been addressed to patient's satisfaction. Rationale was carefully and clearly discussed with the patient.Appropriate informed consent have been reviewed and signed. You for consulting general surgery to participate taking care of of Mr. Cruz Status: Acute Attestations Medical Necessity Statement*: Patient requiring inpatient hospitalization for medical and surgical management Coding Level of Care Code Acute National Insurance Officer for [facility] Diagnoses Biliary acute pancreatitis K85.10
[2021-10-21] MEDS: pantoprazole 40 mg SDV IVP ×2 (08:24→21:26)
[2021-10-21] MEDS: tamsulosin 0.4 mg Capsule PO (08:27)
[2021-10-21] MEDS: acetaminophen 1,000 MG/100 ML PIGGYBACK 400 MG IV (10:36)
[2021-10-21] MEDS: sodium chloride 0.9% 1,000 ML 30 ML IV (10:37)
--- NOTE | 2021-10-21 12:04 | P.ANESASSM_ITS ---
Pre-Anesthetic Assessment Height/Weight: Height 1.78 m Weight 80.785 kg Temp Pulse Resp BP Pulse Ox 98.3 F 71 18 124/75 97 10/21/21 10:30 10/21/21 10:30 10/21/21 10:30 10/21/21 10:30 10/21/21 10:30 Preop Diagnosis: Biliary pancreatitis Operation Date: 10/21/21 11:40 Proposed Procedures p Laparoscopic Cholecystectomy(Right) - Alfredito Cooper MD Familial anesthetic complications: none, PONV Was Beta Tere taken within 24 hours: N/A Was Clonidine taken within 24 hours: N/A Social No alcohol and No tobacco Exam alert, oriented x 3, clear to auscultation bilaterally and regular rate & rhythm Airway Submandibular: within normal limits Cervical ROM: within normal limits Mallampati: Class II Dentition: full History/ROS No significant history except as noted GI Gastroesophageal Reflux Disease Acute randal Anesthetic Plan ASA status: 2 Anesthesia: General Medications/Allergies Home Medications Medication Instructions Recorded Confirmed Last Taken Type tamsulosin 0.4 mg capsule 0.4 mg PO DAILY 06/16/21 10/19/21 07/17/21 History hydrocodone 5 mg-acetaminophen 325 1 tab PO Q4H PRN 10/19/21 10/19/21 Unknown History mg tablet ondansetron HCl 4 mg tablet 4 mg PO Q4H 10/19/21 10/19/21 Unknown History pantoprazole 40 mg tablet,delayed 40 mg PO DAILY 10/19/21 10/19/21 Unknown History release Allergies Allergy/AdvReac Type Severity Reaction Status Date / Time No Known Allergies Allergy Verified 10/20/21 07:21 Current Medications Generic Name Dose Route Start Last Admin Trade Name Erastoq PRN Reason Stop Dose Admin Heparin Sodium (Porcine) 5,000 unit 10/19/21 21:45 10/21/21 05:12 Heparin 5,000 Unit/Ml Inj 1 Ml SUBCUT 5,000 unit Q8H TIEN Administration Piperacillin Sod/Tazobactam 50 mls @ 12.5 mls/hr 10/20/21 04:00 10/21/21 03:45 Sod 3.375 gm/ Sodium Chloride IV 12.5 mls/hr Q8H TIEN Administration Protocol Lactated Ringer's 1,000 mls @ 125 mls/hr 10/21/21 06:15 10/21/21 06:49 Lactated Ringers IV 125 mls/hr .Q8H TIEN Administration Sodium Chloride 1,000 mls @ 30 mls/hr 10/21/21 10:30 10/21/21 10:37 Sodium Chloride 0.9% IV 10/22/21 10:29 30 mls/hr .Q24H TIEN Administration Morphine Sulfate 2 mg 10/19/21 21:38 10/21/21 08:24 Morphine 4 Mg/Ml Sdv 1 Ml IVP 2 mg Q4H PRN Administration SEVERE PAIN Pantoprazole Sodium 40 mg 10/19/21 21:45 10/21/21 08:24 Pantoprazole 40 Mg Sdv IVP 40 mg Q12H TINE Administration Tamsulosin HCl 0.4 mg 10/20/21 09:00 10/21/21 08:27 Tamsulosin 0.4 Mg Capsule PO 0.4 mg DAILY TIEN Administration PFSH Anesthesia Medical History Hyperlipidemia Surgical History H/O esophagogastroduodenoscopy (07/19/21) History of colonoscopy (07/19/21) History of inguinal hernia repair, bilateral Family History Other CAD (coronary artery disease) Lymphoma Social History Smoking and tobacco status: never smoked Alcohol intake: former Substance/Drug Use: never Lives independently: Yes Household members: spouse Marital status: Current occupational status: retired Data Anesthesia : 10/21/21 03:14 10/21/21 03:14 Short CBC 10/19/21 10/20/21 10/21/21 Range/Units 16:45 06:34 03:14 WBC 8.9 8.0 7.2 (4.0-10.0) 10^3/uL Hgb 16.1 14.4 13.2 (11.7-16.6) g/dL Hct 47.0 41.9 L 40.9 L (42.0-52.0) % MCV 90.0 89.5 94.7 H D (80-94) fl Plt Count 315 261 234 (130-400) 10^3/cmm Neut % (Auto) 66.8 59.0 61.9 % Neut # (Auto) 5.90 4.72 4.44 (1.8-7.7) 10^3/uL BMP 10/19/21 10/20/21 10/21/21 16:45 06:34 03:14 Sodium 137 138 136 Potassium 4.4 4.0 3.8 Chloride 99 102 102 Carbon Dioxide 23 25 21 L BUN 19 18 17 Creatinine 0.9 0.8 0.9 Glucose 96 76 63 L Calcium 9.5 8.6 8.4 L Liver Function 10/19/21 10/20/21 10/21/21 Range/Units 16:45 06:34 03:14 Total Bilirubin 1.4 H 1.4 H 1.2 (0.15-1.2) mg/dL AST 364 H 157 H 68 H (0-40) U/L ALT 682 H 443 H 277 H (0-41) U/L Alkaline Phosphatase 405 H 315 H 250 H (40-130) IU/L Albumin 4.7 4.0 3.7 (3.5-5.2) g/dL Urine 10/19/21 Range/Units 16:30 Urine Color Yellow (Yellow) Urine Appearance Clear (CLEAR) Urine pH 5 (5-7) Ur Specific [place] 1.005 (1.005-1.030) Urine Protein Neg (Negative) Urine Glucose (UA) Norm (Normal) Urine Ketones 2+ H (Negative) Urine Nitrate Negative (Negative) Urine Bilirubin 1+ H (Negative) Ur Leukocyte Esterase Negative (Negative) Urine RBC 5-10 H (0-2) /hpf Urine WBC 0-4 H (0-5) /hpf Cardiac Studies: No Data to Display
--- NOTE | 2021-10-21 12:05 | PM.PN ---
Subjective Subjective: Patient was seen this morning he sitting up in a chair,, plans on surgical intervention today, he tells me that he is passing gas, he did have a lot of abdominal pain overnight, which seems to be eased up a little this morning Vitals/I&O/Wt Last Vital Signs Temp 98.3 F 10/21/21 10:30 Pulse 71 10/21/21 10:30 Resp 18 10/21/21 10:30 BP 124/75 10/21/21 10:30 Pulse Ox 97 10/21/21 10:30 10/20/21 10/21/21 10/21/21 22:59 06:59 14:59 Intake Total 50 / 2100 1050 / 3150 100 / 100 Output Total 975 / 1475 450 / 1925 Balance -925 / 625 600 / 1225 100 / 100 Weight last 48 hrs Weight 80.785 kg Weight 78.562 kg Weight 78.925 kg Physical Exam Const: COMMON NORMALS: no acute distress and patient oriented x3 HENMT: COMMON NORMALS: normocephalic HEAD & SCALP: normocephalic Neck/C-Spine: COMMON NORMALS: no JVD Resp: COMMON NORMALS: normal respiratory effort, No retractions, No use of accessory muscles and clear to auscultation bilaterally AUSCULTATION: clear to auscultation bilaterally Cardio: COMMON NORMALS: no JVD, regular rate, regular rhythm, S1 normal heart sound present and S2 normal heart sound present RATE: regular rate RHYTHM: regular rhythm HEART SOUNDS: S1 normal heart sound present and S2 normal heart sound present GI: OTHER: Abdomen soft, slightly distended, decreased bowel sounds, generalized tenderness Extremity: COMMON NORMALS: no pedal edema Neuro: COMMON NORMALS: patient oriented x3 Psych: COMMON NORMALS: mental status grossly normal Data : 10/21/21 03:14 10/21/21 03:14 A&P Assessment and plan (1) Cholecystitis: Continue Zosyn. No signs of sepsis at this time. Plans of surgical intervention today Status: Acute (2) Pancreatitis: No CBD stones as per MRCP. Additional assessment of management of cholecystitis as above. May have passed stones/sludge. Denies any recent heavy alcohol intake. Discussed with him to avoid alcohol entirely. Has history of heavy alcohol intake in his youth, but not so recently, reports had 2 beers in the last several months. NPO, sips and ice chips for now. Gentle IVF. Pain control, antiemetics. Possibly also some reactive changes secondary to cholecystitis. Is on PPI, had recently had EGD and colonoscopy. We will continue PPI, increased dose for now to twice daily. Status: Acute Attestations Medical Necessity Statement*: Patient requires hospitalization for cholecystitis, pancreatitis, Coding Level of Care Code Acute Embedded Systems Designer for [facility] Diagnoses Cholecystitis K81.9 Pancreatitis K85.90
[2021-10-21] MEDS: lidocaine 2% INJ 20 mL INJECTION (12:16)
--- NOTE | 2021-10-21 13:33 | P.OP_ITS ---
Operative Report Date of procedure: October 21, 2021 Pre-op diagnosis: Preop Diagnosis Biliary pancreatitis Post-op diagnosis: Chronic calculus cholecystitis with omental adhesions Procedure done: Laparoscopic cholecystectomy Implants: Surgi-Glenn and Surgicel at the gallbladder fossa Specimens removed/disposition: Gallbladder and contents Surgeon: Alfredito Cooper MD Welding Machine Operator [employer] Arc: Surgical augie Decker Circulating nurse Montrell Anderson Anesthesia: General (BERENICE Montes and Dr. Capps) Estimated blood loss (mL): 25 IV fluids (mL): 1,000 Procedure: Patient was identified in the holding area and taken back to the operative suite, placed in supine position intubated by anesthesia . Time-out was done verifying the patient's name/date of /planned procedure and destination after the procedure, all were in agreement. SCDs confirmed to be functioning, preoperative antibiotics administered per protocol, and beta daryl protocol was confirmed. Patient was appropriately secured to the table, footboard was applied to the OR table, before prep and drape anesthesia was asked to tilt the table back and forth to make sure that the patient is appropriately secured and she was. Prep and drape of the abdomen was done under the usual sterile technique, followed by that supraumbilical skin incision,skin incision was done by a 15 blade knife, and stay sutures were applied to the fascia and Hearn trocar technique was used to enter the abdominal without injuring any abdominal viscera, started by low flow gas insufflation followed by a high flow, started with a 10 mm laparoscope and under direct vision there was no evidence of any injuries, the scope then switched to a 30? ,10 millimeter scope and under direct visualization 5 millimeter trocar was inserted in the epigastric region followed by two 5 mm trocars were inserted in the right upper quadrant that was done after injection of local lidocaine 2% at all incision sites. Gallbladder showed acute on top of chronic cholecystitis with omental adhesions encasing the gallbladder. Patient was then positioned in the head up and tilted to the left. Ratcheted forceps were introduced into the lateral most 5mm port and was applied unto the fundus of the gallbladder cephalad and using Bullet forceps the infundibulum of the gallbladder was retracted laterally. Mental adhesions were taken down under direct visualization using [place] forceps at attached to monopolar source. Using [place] forceps then L-hook cautery to dissect the peritoneum overlying the Calot's triangle which was then opened medially and laterally until the cystic duct and the cystic artery were skeletonized. Dissection was carried along the body of the gallbladder and after ensuring critical view of safety was identfied. Cystic duct and cystic artery where seen connected to the gallbladder. Clips were applied on the cystic duct towards the common bile duct 1 towards the gallbladder then divided is in sharp scissors, 2 clips were then applied onto the cystic artery and 1 towards the gallbladder and divided by sharp scissors. Additional traversing vessel was clipped and divided. Noticed that the cystic duct is dilated and residual stones were milked out prior to clip application followed by that an Endoloop PDS to secure the stump of the cystic duct was achieved as well. Dissection was then carried along of the gallbladder from the gallbladder fossa using cautery as well as sharp dissection with heat energy. The gallbladder then was dissected out from the gallbladder fossa totally , cholecystectomy was then achieved and was placed in an Endo Catch bag and then retrieved from the Hearn trocar site under direct visualization using a 5 mm 30? scope through the epigastric trocar, specimen was then passed to the circulating nurse to go for permanent pathology,irrigation and hemostasis was done to the gallbladder fossa after hemostasis was secured yet there was some oozing from the gallbladder fossa and final hemostasis was achieved by using Surgi-Glenn and Surgicel. Final survey laparoscopy was done that showed no injuries or bleeding. Suction irrigation was obtained. The supraumbilical fascial defect was then closed using interrupted number one PDS sutures using a fascial closure device ;Dennis Borjas under direct visualization, additional 0 Vicryl was used to close the fascial defect as well. Following that Gas was allowed to deflate,Trocars were then taken out under direct vision there was no evidence of bleeding. Specimen was passed to the circulating nurse for permanent pathology. No drains were placed and the supraumbilical incision as well as all trocar sites were closed by 3/0 Vicryl followed by skin sarah to approximate the skin edges of the incisions , dressing was applied in the form of Band-Aids and the patient patient got extubated and was taken to recovery area in a stable condition. Count of sponges,needles and instruments were completed at the end of the procedure I was present for the whole entire procedure.
[2021-10-21] MEDS: fentaNYL 50 mcg/mL INJ 2mL IVP (14:09)
[2021-10-21] MEDS: HYDROcodone-acetaminophen 5-325 mg Tablet 1 TAB PO ×2 (17:06→21:23)
[2021-10-22 00:41] VITALS: RESP 18
[2021-10-22] MEDS: morphine 4 mg/mL SDV 1 mL 2 MG IVP (00:41)
[2021-10-22] MEDS: HYDROcodone-acetaminophen 5-325 mg Tablet 1 TAB PO ×2 (02:17→06:27)
[2021-10-22 02:22] VITALS: BP 134/82; PULSE 65; RESP 17; TEMP 36.5; O2SAT 92
[2021-10-22] MEDS: piperacillin-tazobactam 3.375 GM in sodium chloride 0.9% (plus) 50 ML IV (03:17)
[2021-10-22 04:00] VITALS: BP 112/65; PULSE 65; RESP 17; TEMP 36.8; O2SAT 98
[2021-10-22 04:00] LABS: Hematocrit 37.6 % (42.0-52.0); Hemoglobin 12.8 g/dL (11.7-16.6); Lymphocytes # 0.9 10^3/uL (0.8-4.8); Lymphocytes % 11.2 %; Mean Corpuscular Hemoglobin 31.2 pg (28.0-34.0); Mean Corpuscular Volume 91.7 fl (80-94); Mean Platelet Volume 10.4 fL (7.4-10.4); Monocytes # 0.5 10^3/uL (0.2-0.9); Neutrophils # 6.92 10^3/uL (1.8-7.7); Neutrophils % 82.3 %; Nucleated Red Blood Cells % 0 %; Platelet Count 252 10^3/cmm (130-400); White Blood Count 8.4 10^3/uL (4.0-10.0)
[2021-10-22 04:23] LABS: Alanine Aminotransferase 238 U/L (0-41); Albumin Level 3.6 g/dL (3.5-5.2); Alkaline Phosphatase 234 IU/L (40-130); Anion Gap 16.4 (5-19); Aspartate Amino Transferase 84 U/L (0-40); Blood Urea Nitrogen 8 mg/dL (8-23); Calcium 8.7 mg/dL (8.5-10.5); Carbon Dioxide 21 mmol/L (22-29); Chloride 102 mmol/L (98-107); Globulin 2.8 g/dL (1.3-4.6); Glomerular Filtration Rate 113.9 mL/min (90-130); Glucose 141 mg/dL (65-115); Lipase 20 U/L (13-60); Magnesium 2.2 mg/dL (1.7-2.3); Osmolality Calculated 281 mOsm/kg (285-295); Phosphorus 2.9 mg/dL (2.5-4.5); Potassium 4.4 mmol/L (3.5-5.1); Sodium 135 mmol/L (136-145); Total Bilirubin 0.8 mg/dL (0.15-1.2); Total Protein 6.4 g/dL (6.6-8.7)
[2021-10-22] MEDS: lactated ringers 1,000 ML 125 ML IV (05:37)
--- NOTE | 2021-10-22 07:26 | P.PN_ITS ---
Subjective Subjective: Patient overall feels a whole lot better. Tolerating p.o. intake and stable vital signs. Lipase is back to normal 19 and LFTs there with elevated which is expected after cauterization of the gallbladder fossa for hemostasis. Yet bilirubin is 0.8. Adequate urine output Vitals/I&O/Wt Last Vital Signs Temp 98.3 F 10/22/21 04:00 Pulse 65 10/22/21 04:00 Resp 17 10/22/21 04:00 BP 112/65 10/22/21 04:00 Pulse Ox 98 10/22/21 04:00 10/21/21 10/22/21 10/22/21 22:59 06:59 14:59 Intake Total 2250 / 3050 1050 / 4100 50 / 50 Output Total 780 / 805 1650 / 1650 Balance 2250 / 3025 270 / 3295 -1600 / -1600 Weight last 48 hrs Weight 184 lb 14.4 oz Weight 178 lb 1.6 oz Physical Exam Narrative: Patient is conscious alert oriented X3 No apparent distress BMI 26.5 Head and neck examination PERRLA no masses no cervical lymphadenopathy no jaundice Abdomen nontender except mildly at the incision sites nondistended soft no organomegaly guarding or rigidity/no signs of peritonitis. Skin sarah in place. Extremities no cyanosis no clubbing no edema Data : 10/22/21 03:20 10/22/21 03:20 A&P Assessment and plan (1) Biliary acute pancreatitis: Condition resolved and from surgical standpoint of view, diet can be advanced to low-fat soft GI diet Patient can be discharged home today and follow-up with me towards the end of week at the surgery office Education about the importance of low-fat diet Hydration No antimicrobial therapy needed upon discharge Assurance and education All questions have been answered and all concerns have been addressed to patient's satisfaction. Status: Resolved Attestations Medical Necessity Statement*: Per admitting service Coding Level of Care Code Acute Application Integration Architect for [facility] Diagnoses Biliary acute pancreatitis K85.10
[2021-10-22 08:00] VITALS: BP 130/78; PULSE 69; RESP 17; TEMP 36.9; O2SAT 94
--- NOTE | 2021-10-22 08:19 | ANE.PACU2 ---
Inpatient post-anesthesia follow up: Airway intact: Yes Vital signs: Temperature 98.3 F Pulse Rate 65 Respiratory Rate 17 Blood Pressure 112/65 Pulse Oximetry 98 Oxygen Delivery Me thod Nasal Cannula Oxygen Flow Rate 3.5 Fraction of Inspir ed Oxygen Hydration adequate: Yes Nausea and vomiting: No Pain level: 2 Mental status: Baseline
[2021-10-22] MEDS: tamsulosin 0.4 mg Capsule PO (08:49)
[2021-10-22] MEDS: pantoprazole 40 mg SDV IVP (08:49)
[2021-10-22] MEDS: docusate sodium 100 mg Capsule PO (08:54)
--- NOTE | 2021-10-22 10:58 | P.DS_ITS ---
Discharge Providers Date of Admission: 10/19/21 19:43 Date of Discharge: October 22, 2021 Attending Provider at Admission: Douglas Yusuf Attending Provider at Discharge: Santino Rodriguez MD Primary Care Provider: Bipin Knott MD Diagnoses at Discharge Discharge Diagnosis (1) Biliary acute pancreatitis: Status: Resolved Reason for Visit Reason for Visit: abd pain Hospital Course Hospital Course This is a 61-year-old male with a past medical history of hyperlipidemia, who presents to [facility] due to nausea and vommiting Patient was admitted to [facility] for cholecystitis, with pancreatitis, MRCP did not show any CBD stones, received IV fluids, broad- spectrum antibiotic therapy, general surgery was consulted. Patient underwent a laparoscopic cholecystectomy, tolerated procedure well, discharged home with close follow-up with primary care as outpatient and general surgery Physical Exam Const: COMMON NORMALS: no acute distress and patient oriented x3 Resp: COMMON NORMALS: normal respiratory effort, No retractions, No use of accessory muscles and clear to auscultation bilaterally AUSCULTATION: clear to auscultation bilaterally Cardio: COMMON NORMALS: regular rate, regular rhythm, S1 normal heart sound present and S2 normal heart sound present RATE: regular rate RHYTHM: regular rhythm HEART SOUNDS: S1 normal heart sound present and S2 normal heart sound present GI: COMMON NORMALS: Normal to inspection, nondistended, normoactive bowel mitzi nds present, Soft to palpation and non-tender PALPATION: Yes Soft to palpation Extremity: COMMON NORMALS: no pedal edema Neuro: COMMON NORMALS: patient oriented x3 Psych: COMMON NORMALS: mental status grossly normal Discharge Data Studies Completed and Pending Completed Studies During Hospitalization Category Date Time Status MR MRCP 61622 Stat MRI 10/19/21 16:39 Completed Pending at discharge Category Date Time Status ES surgery / GI images Routine Exams 10/21/21 08:06 Taken Magnesium AM LABS Lab 10/23/21 04:00 Ordered Magnesium AM LABS Lab 10/24/21 04:00 Ordered Phosphorus AM LABS Lab 10/23/21 04:00 Ordered Phosphorus AM LABS Lab 10/24/21 04:00 Ordered Pathology: Surgical [PTH] Routine Pth 10/21/21 13:02 Ordered Radiology Impressions Cholangiopancreatography MRI 10/19/21 16:39 IMPRESSION: 1. Cholelithiasis 2. Cholecystitis 3. No stones are seen in the common bile duct. 4. Suspect pancreatitis. Correlate with appropriate laboratory studies. COMMENTS: Consistent with the [employer]'s Incidental Findings Committee white paper (J Am Lj Radiol 2018): Any incidental renal lesion less than 1 cm or classified as too small to characterize, or any incidental cystic renal lesion characterized as simple-appearing, is likely benign. No follow-up imaging is recommended for these lesions per consensus recommendations based on imaging criteria. Laboratory Results WBC 8.4 10^3/uL (4.0-10.0) 10/22/21 03:20 RBC 4.10 10^6/uL (4.1-5.3) 10/22/21 03:20 Hgb 12.8 g/dL (11.7-16.6) 10/22/21 03:20 Hct 37.6 % (42.0-52.0) L 10/22/21 03:20 MCV 91.7 fl (80-94) 10/22/21 03:20 MCH 31.2 pg (28.0-34.0) 10/22/21 03:20 MCHC 34.0 g/dL (30.0-36.0) D 10/22/21 03:20 RDW 12.0 % (12.1-15.1) L 10/22/21 03:20 Plt Count 252 10^3/cmm (130-400) 10/22/21 03:20 MPV 10.4 fL (7.4-10.4) 10/22/21 03:20 Neut % (Auto) 82.3 % 10/22/21 03:20 Lymph % (Auto) 11.2 % 10/22/21 03:20 [place] % (Auto) 6.0 % 10/22/21 03:20 Eos % (Auto) 0.0 % 10/22/21 03:20 Baso % (Auto) 0.0 % 10/22/21 03:20 Neut # (Auto) 6.92 10^3/uL (1.8-7.7) 10/22/21 03:20 Lymph # (Auto) 0.9 10^3/uL (0.8-4.8) 10/22/21 03:20 [place] # (Auto) 0.5 10^3/uL (0.2-0.9) 10/22/21 03:20 Eos # (Auto) 0.0 10^3/uL (0.0-0.8) 10/22/21 03:20 Baso # (Auto) 0.0 10^3/uL (0.0-0.1) 10/22/21 03:20 Nucleated RBC % (auto) 0 % 10/22/21 03:20 Nucleated RBCs # 0.0 /100WBC 10/22/21 03:20 Sodium 135 mmol/L (136-145) L 10/22/21 03:20 Potassium 4.4 mmol/L (3.5-5.1) 10/22/21 03:20 Chloride 102 mmol/L (98-107) 10/22/21 03:20 Carbon Dioxide 21 mmol/L (22-29) L 10/22/21 03:20 Anion Gap 16.4 (5-19) 10/22/21 03:20 BUN 8 mg/dL (8-23) 10/22/21 03:20 Creatinine 0.7 mg/dL (0.7-1.2) 10/22/21 03:20 GFR Calculation 113.9 mL/min (90-130) 10/22/21 03:20 Glucose 141 mg/dL (65-115) H 10/22/21 03:20 Calculated Osmolality 281 mOsm/kg (285-295) L 10/22/21 03:20 Calcium 8.7 mg/dL (8.5-10.5) 10/22/21 03:20 Phosphorus 2.9 mg/dL (2.5-4.5) 10/22/21 03:20 Magnesium 2.2 mg/dL (1.7-2.3) 10/22/21 03:20 Total Bilirubin 0.8 mg/dL (0.15-1.2) 10/22/21 03:20 AST 84 U/L (0-40) H 10/22/21 03:20 ALT 238 U/L (0-41) H 10/22/21 03:20 Alkaline Phosphatase 234 IU/L (40-130) H 10/22/21 03:20 Total Protein 6.4 g/dL (6.6-8.7) L 10/22/21 03:20 Albumin 3.6 g/dL (3.5-5.2) 10/22/21 03:20 Globulin 2.8 g/dL (1.3-4.6) 10/22/21 03:20 Lipase 20 U/L (13-60) 10/22/21 03:20 Urine Color Yellow (Yellow) 10/19/21 16:30 Urine Appearance Clear (CLEAR) 10/19/21 16:30 Urine pH 5 (5-7) 10/19/21 16:30 Ur Specific [place] 1.005 (1.005-1.030) 10/19/21 16:30 Urine Protein Neg (Negative) 10/19/21 16:30 Urine Glucose (UA) Norm (Normal) 10/19/21 16:30 Urine Ketones 2+ (Negative) H 10/19/21 16:30 Urine Blood 2+ (Negative) H 10/19/21 16:30 Urine Nitrate Negative (Negative) 10/19/21 16:30 Urine Bilirubin 1+ (Negative) H 10/19/21 16:30 Urine Urobilinogen 1 mg/dL (Negative) H 10/19/21 16:30 Ur Leukocyte Esterase Negative (Negative) 10/19/21 16:30 Urine RBC 5-10 /hpf (0-2) H 10/19/21 16:30 Urine WBC 0-4 /hpf (0-5) H 10/19/21 16:30 Ur Squamous Epith Cells 0-4 /hpf (0-5) H 10/19/21 16:30 Amorphous Sediment Not Reportable 10/19/21 16:30 Urine Bacteria None /hpf (NONE) 10/19/21 16:30 Vitals Last Vital Signs Temp 98.4 F 10/22/21 08:00 Pulse 69 10/22/21 08:00 Resp 17 10/22/21 08:00 BP 130/78 10/22/21 08:00 Pulse Ox 94 10/22/21 08:00 Discharge Plan Discharge Patient Disposition: Home Condition: Stable Prescriptions: New hydrocodone-acetaminophen 5-325 mg Tablet 1 tab PO Q6H PRN (Reason: Moderate Pain) 5 Days Qty: 20 0RF Continued tamsulosin 0.4 mg capsule 0.4 mg PO DAILY 0RF pantoprazole 40 mg tablet,delayed release (DR/EC) 40 mg PO DAILY 0RF Discontinued hydrocodone-acetaminophen 5-325 mg tablet 1 tab PO Q4H PRN (Reason: Pain) 0RF ondansetron HCl 4 mg tablet 4 mg PO Q4H 0RF Discharge Orders: Discharge Order (Routine); Ordered 10/22/21 Ordered By: Santino Rodriguez Referrals: Alfredito Cooper MD [Physician] - (Return to surgery office this coming Saturday or ) Bipin Knott MD [Primary Care Provider] - Discharge Diet: Advance as tolerated Discharge Activity: Limit activity as instructed Patient Instructions: Hydrocodone/Acetaminophen (By mouth), Low Fat Diet (DC), Laparoscopic Cholecystectomy (DC), Opioid Safety, Post Anesthesia Care Activity Restrictions/Additional Instructions: 1. Patient can shower after 48 hours from surgery 2. Remove Dermabond 7 to 10 days after surgery, if there is a secondary dressing can take down after 48 hours. 3. Up and walking as tolerated 4. Do not lift more than 5 pounds first 2 weeks after surgery and not more than 25 pounds 6 to 8 weeks after surgery. 5. Do not operate heavy machinery or drive while using pain medications. 6.Contact the office or return to the ER for worsening nausea vomiting fevers or chills or jaundice or noticing any redness around incision sites or discharge. 7. Avoid constipation Discharge Attestations Time Spent in Discharge Care*: less than 30 min Quality Metrics Clinical Quality Measures [ No reported AMI, CVA or VTE this stay] Coding Level of Care Code Acute Chg FW DC note Diagnoses Biliary acute pancreatitis K85.10
[2021-10-22 12:00] VITALS: BP 128/86; PULSE 67; RESP 16; TEMP 36.7; O2SAT 93
[2021-10-22 13:00] VITALS: BP 128/86; PULSE 67; RESP 16; TEMP 36.7; O2SAT 93
--- NOTE | 2021-10-22 13:00 | PC.NURSE ---
Discharge Note Patient discharged to home via private vehicle accompanied by spouse. Discharge instructions reviewed with patient and/or footwear sales representative. Mobile pharmacy medications and/or prescriptions provided. Belongings/home medications returned.
== END 2021-10-22 13:00 | disposition home or self-care (01) | DRG 417 ==
LOC: ER 18:37 → MEDSURG 20:09
PROVIDERS: Family Medicine; Surgery; Admitting Provider Internal Medicine; Emergency Provider Emergency Medicine; PCP Family Medicine; Visit Provider Family Medicine
PROC: 0FT44ZZ Resection of Gallbladder, Percutaneous Endoscopic Approach (ICD-10-PCS; CPT 47562; principal; 2021-10-21 11:20)
DX: K80.10 Calculus of gallbladder with chronic cholecystitis without obstruction (principal); K85.10 Biliary acute pancreatitis without necrosis or infection; E78.5 Hyperlipidemia, unspecified; N40.0 Benign prostatic hyperplasia without lower urinary tract symptoms; R31.29 Other microscopic hematuria; F10.21 Alcohol dependence, in remission
CPT/HCPCS: 36415; 74177; 74181; 80053; 81001; 83690; 83735; 84100; 85025; 88304; 96365; 96372; 96375; 99285; C9113; J1100; J1170; J1200; J1644; J2250; J2270; J2405; J2543; J2704; J2710; J3010; J3490; J7030

== ENCOUNTER → 2021-11-01 09:38 | Outpatient (BNVA) | payer BC, SELFPAY | PROVIDERS: PCP Family Medicine; Visit Provider Family Medicine | DX: R10.9 Unspecified abdominal pain (principal) | CPT/HCPCS: 80053; 83690; 85025 ==

== ENCOUNTER 2022-07-13 11:55 | Outpatient (CLI) | payer BC, SELFPAY ==
[2022-07-13] MEDS: iohexol 350 mg/mL 500 mL Btl (per mL) IV (12:02)
[2022-07-13] MEDS: iohexol 350 mg/mL 500 mL Btl (per mL) PO (12:03)
--- NOTE | 2022-07-13 12:30 | CT_ITS ---
WS: [id number] CT ABDOMEN AND PELVIS WITH CONTRAST HISTORY: History of diverticulosis, recent abdominal pain. TECHNIQUE: Imaging performed of the abdomen and pelvis with IV contrast. Single phase imaging of the abdomen. Coronal and sagittal reformats are submitted. All CT scans at [facility] use at [address] one of these dose optimization techniques: automated exposure control; mA and/or kV adjustment per patient size (includes targeted exams where dose is matched to clinical indication); or iterative re construction. IV CONTRAST: Omnipaque 350; 100 mL IV. Oral contrast: Yes. DLP: 480.41 mGy.cm COMPARISON: 10/19/2021 Lower thorax: Lung bases are clear. Heart is normal size. No hiatal hernia. Liver/biliary system: Normal size with no intrahepatic dilatation. Gallbladder: Status post cholecystectomy. Pancreas: Normal size pancreas and pancreatic duct. No adjacent inflammation. Spleen: Normal size spleen. No mass or infarct. Adrenal glands: Normal. Right kidney: Normal. Left kidney: Normal size kidney. The LEFT renal cyst measures 2.7 x 2.0 cm. Wall calcification within the cyst. Very similar to the prior study from 10/19/2021. There is an additional cortical hypodensity in the lower kidney. Aorta: Mild atherosclerosis with no aneurysm. Lymphadenopathy: None. Free fluid: None. GI tract: Normally distended stomach. Normal small bowel. Mild constipation, normal appendix. Moderat e diverticular disease in the sigmoid colon but no acute diverticulitis. Abdominal wall: Fat containing umbilical hernia. Pelvis: Well-distended urinary bladder. Prostate gland is mildly enlarged encroaching towards the bas e of the urinary bladder. Prominent seminal vesicles. Bones: Unremarkable. CT/CT abdomen pelvis w con* [id number] IMPRESSION: 1. Moderate burden sigmoid diverticulosis. No evidence for acute diverticuliti s. No abscess or free fluid. 2. RIGHT renal cysts similar to 10/19/2021. 3. Prior cholecystectomy. 4. No pancreatitis or bile duct dilatation. 5. Mild atherosclerosis aorta. 6. Prostate gland enlargement.
== END 2022-07-13 11:56 | disposition home or self-care (01) ==
LOC: RAD 11:58
PROVIDERS: PCP Family Medicine; Visit Provider Family Medicine
DX: R10.9 Unspecified abdominal pain (principal); R53.83 Other fatigue; N28.1 Cyst of kidney, acquired; N40.0 Benign prostatic hyperplasia without lower urinary tract symptoms; I70.0 Atherosclerosis of aorta; K57.30 Diverticulosis of large intestine without perforation or abscess without bleeding; Z90.49 Acquired absence of other specified parts of digestive tract
CPT/HCPCS: 74177; 80053; 82607; 83880; 84403; 84443; 85025; 86140; Q9967

== ENCOUNTER → 2022-11-20 08:11 | Outpatient (BNVA) | payer BC, SELFPAY | PROVIDERS: PCP Family Medicine; Visit Provider Family Medicine | DX: Z12.5 Encounter for screening for malignant neoplasm of prostate (principal) | CPT/HCPCS: 84153 ==

== ENCOUNTER → 2023-04-02 07:24 | Outpatient (BNVA) | payer BC, SELFPAY | PROVIDERS: PCP Family Medicine; Visit Provider Family Medicine | DX: R10.9 Unspecified abdominal pain (principal); R51.9 Headache, unspecified | CPT/HCPCS: 86003; 86008 ==

== ENCOUNTER 2024-08-19 08:33 | Outpatient (RCR) | payer BC, SELFPAY | END 2024-09-12 23:59 | disposition home or self-care (01) | LOC: SPT 08:33 | PROVIDERS: PCP Family Medicine; Visit Provider Family Medicine | DX: M50.90 Cervical disc disorder, unspecified, unspecified cervical region (principal) | CPT/HCPCS: 97110; 97161 ==

== ENCOUNTER 2024-09-13 05:00 | Outpatient (RCR) | payer BC, SELFPAY | END 2024-10-02 12:12 | disposition home or self-care (01) | LOC: SPT 05:00 | PROVIDERS: PCP Family Medicine; Visit Provider Family Medicine | DX: M50.90 Cervical disc disorder, unspecified, unspecified cervical region (principal) | CPT/HCPCS: 97110 ==

== ENCOUNTER → 2024-12-15 10:32 | Outpatient (BNVA) | payer BC, SELFPAY | PROVIDERS: PCP Family Medicine; Visit Provider Physician Assistant | DX: M25.551 Pain in right hip (principal); M16.11 Unilateral primary osteoarthritis, right hip | CPT/HCPCS: 73523 ==

== ENCOUNTER 2025-01-25 16:17 | Outpatient (CLI) | payer BC, SELFPAY ==
--- NOTE | 2025-01-25 16:30 | CT_ITS ---
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 TECHNIQUE: Protocol for ROBERTO total hip replacement has been obtained. This includes axial imaging from the hip joint through the knee joint. DLP: 940.62 mGy FINDINGS: Hips: Hip joints are narrowed. Mild osteophytic ridging around the acetabulum and femoral necks. No fractures. No destructive bone lesions. Mild diverticular disease. Extensive atherosclerotic plaque within the femoral arteries. Knees: Mild tricompartment joint space narrowing. No destructive bone process. No significant suprapatellar effusions. Extensive calcification in the popliteal arteries. CT/CT hip RT ROBERTO [id number] IMPRESSION: CT imaging provided for ROBERTO robotic total knee replacement.
== END 2025-01-25 16:18 | disposition home or self-care (01) ==
LOC: RAD 16:19
PROVIDERS: PCP Family Medicine; Visit Provider Student in an Organized Health Care Education/Training Program
DX: M16.11 Unilateral primary osteoarthritis, right hip (principal); Z01.818 Encounter for other preprocedural examination; I70.208 Unspecified atherosclerosis of native arteries of extremities, other extremity
CPT/HCPCS: 73700

== ENCOUNTER → 2025-01-26 11:55 | Outpatient (BNVA) | payer BC, SELFPAY | PROVIDERS: PCP Family Medicine; Visit Provider Student in an Organized Health Care Education/Training Program | DX: Z01.818 Encounter for other preprocedural examination (principal) | CPT/HCPCS: 80053; 81003; 85025 ==

== ENCOUNTER 2025-02-23 06:16 | Observation (INO) | payer BC, SELFPAY ==
[2025-02-22] VITALS (17 sets, daily range): BP systolic 88–138; BP diastolic 59–87; PULSE 55–87; RESP 14–27; TEMP 36.1–36.6; O2SAT 93–98; BMI 27.2
[2025-02-22] MEDS: acetaminophen 1,000 MG/100 ML PIGGYBACK 400 MG IV ×3 (07:21→21:11)
[2025-02-22 07:52] LABS: Hematocrit 43.2 % (37-53); Hemoglobin 15.40 g/dL (11.27-16.99); Mean Corpuscular HGB Conc 35.6 g/dL (30-55); Mean Corpuscular Hemoglobin 31.1 pg (27-33); Mean Corpuscular Volume 87.3 fl (82-101); Nucleated Red Blood Cells % 0 %; Platelet Count 277 10^3/cmm (157-399); Red Blood Count 4.95 10^6/uL (3.85-5.65); White Blood Count 6.62 10^3/uL (3.29-11.43)
[2025-02-22 07:56] LABS: Anion Gap 16.7 (5-19); Blood Urea Nitrogen 22 mg/dL (8-23); Calcium 9.1 mg/dL (8.5-10.5); Carbon Dioxide 22 mmol/L (22-29); Chloride 102 mmol/L (98-107); Creatinine Clr Calc Pharmacy 100.5593; Glucose 110 mg/dL (65-115); Osmolality Calculated 288 mOsm/kg (285-295); Potassium 3.7 mmol/L (3.5-5.1); Sodium 137 mmol/L (136-145)
--- NOTE | 2025-02-22 09:03 | W.PM.OPSUD ---
Surgery/Procedure H&P Update DATE OF PROCEDURE: February 22, 2025 DATE H&P PERFORMED: 01/26/25 H&P UPDATE INFORMATION: I have reviewed H&P completed within last 30 days, I have examined patient prior to procedure and No changes to prior documentation CHANGES TO PREVIOUS DOCUMENTATION: Patient is cleared the preoperative clearance process and ready proceed with surgical intervention today. No change in health since last visit. Patient is ready to proceed with surgical intervention today. Once again detailed the ins and outs procedure the risk benefits complication alternatives surgical nonsurgical treatment options. Understanding risk of surgery patient like to proceed with surgical interventionFor right total hip arthroplasty?Logan robotic assisted posterior approach. All questions answered at this time. PREOP DIAGNOSIS: Right hip DJD, right hip trochanteric bursitis PRIMARY INDICATION FOR PROCEDURE: Right hip degenerative joint disease, right hip trochanteric bursitis PLANNED PROCEDURE: Operation Date: 02/22/25 09:55 Proposed Procedures p RIGHT Logan Robot Total Hip Arthroplasty - Posterior Approach(Right) - Michael Donald DO
--- NOTE | 2025-02-22 09:07 | ANES.PREANE2 ---
Pre-Anesthetic Assessment Height/Weight: Height 1.78 m Weight 86.183 kg Temp Pulse Resp BP Pulse Ox O2 Del Method 97.8 F 71 16 138/87 95 Room Air 02/22/25 07:12 02/22/25 07:12 02/22/25 07:12 02/22/25 07:12 02/22/25 07:12 02/22/25 07:12 Preop Diagnosis: Right hip DJD, right hip trochanteric bursitis Operation Date: 02/22/25 09:55 Proposed Procedures p RIGHT Logan Robot Total Hip Arthroplasty - Posterior Approach(Right) - Michael Wilcox, Familial anesthetic complications: None Was Beta Tere taken within 24 hours: N/A Was Clonidine taken within 24 hours: N/A Last intake: Intake Last Liquid Date 02/21/25 Last Liquid Time 20:00 Last Solid Date 02/21/25 Last Solid Time 20:00 Social No alcohol and No tobacco Exam alert, oriented x 3, clear to auscultation bilaterally and regular rate & rhythm Airway Mallampati: Class I Dentition: caps Pulmonary Hx valley fever 7 years ago, 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, hx L PTx GI Gastroesophageal Reflux Disease Anesthetic Plan ASA status: 2 Anesthesia: Regional (specify below) Risk of > 500 ml blood loss (7ml/kg in children): No Medications/Allergies Home Medications ?Medication ?Instructions ?Recorded ?Confirmed ?Last Taken ?Type tamsulosin 0.4 mg capsule 0.4 mg PO DAILY 06/16/21 02/18/25 07/17/21 History pantoprazole 40 mg tablet,delayed 40 mg PO DAILY 10/19/21 02/18/25 Unknown History release fluticasone 250 mcg-salmeterol 50 1 inh inhalation BID #60 ea 01/24/23 02/18/25 Unknown Rx mcg/dose blistr powdr for inhalation (Advair Diskus) Allergies Allergy/AdvReac Type Severity Reaction Status Date / Time No Known Allergies Allergy Verified 02/04/25 09:49 Current Medications Generic Name Dose Route Start Last Admin Trade Name Freq PRN Reason Stop Dose Admin Sodium Chloride 1,000 mls @ 30 mls/hr 02/22/25 07:15 02/22/25 07:21 Sodium Chloride 0.9% IV 02/23/25 07:14 30 mls/hr .Q24H TIEN Administration PFSH Anesthesia Medical History (Updated 01/30/25 @ 23:08 by Michael Donald DO) Asthma Cholecystitis Pancreatitis Hyperlipidemia Surgical History H/O esophagogastroduodenoscopy (07/19/21) History of colonoscopy (07/19/21) History of inguinal hernia repair, bilateral Family History Other CAD (coronary artery disease) Lymphoma Social History Smoking and tobacco/nicotine status: never used tobacco/nicotine Alcohol intake: former Substance/Drug Use: never Lives independently: Yes Household members: spouse Marital status: Current occupational status: retired Data Anesthesia 02/22/25 07:20 02/22/25 07:20 Short CBC 02/22/25 Range/Units 07:20 WBC 6.62 (3.29-11.43) 10^3/uL Hgb 15.40 (11.27-16.99) g/dL Hct 43.2 (37-53) % MCV 87.3 (82-101) fl Plt Count 277 (157-399) 10^3/cmm Neut % (Auto) 44.2 % Neut # (Auto) 2.93 (1.8-7.7) 10^3/uL BMP 02/22/25 07:20 Sodium 137 Potassium 3.7 Chloride 102 Carbon Dioxide 22 BUN 22 Creatinine 0.8 Glucose 110 Calcium 9.1 Blood Bank 02/22/25 07:20 Blood Type O Positive Rho(D) Type Rh positive Antibody Screen Negative
[2025-02-22] MEDS: ceFAZolin 2,000 MG in sodium chloride 0.9% (plus) 50 ML 100 MG IV ×2 (09:50→16:59)
[2025-02-22] MEDS: tranexamic acid 1,000 mg/10mL SDV 1000 MG IV (10:11)
--- NOTE | 2025-02-22 12:05 | P.BOP_ITS ---
Date of Procedure: 02/22/2025 Surgeon: Michael Donlad DO Senior Asic Engineer(s): Montrell Donald PA-C Procedure(s) performed: Right total hip arthroplasty?Logan robotic assisted (posterior approach) Right hip trochanteric bursectomy Findings of the procedure(s): Patient underwent procedure as planned without issues or complications he did have significant inflamed trochanteric bursal tissue and given his initial clinical examination with pain in his bursa as well I subsequently performed trochanteric bursectomy. He tolerated procedure well without issues or complications taken to recovery stable condition. Estimated blood loss: 150 mL Specimen(s) removed: Femoral head and acetabular reamings removed Post-operative diagnosis: Right hip degenerative joint disease, right hip trochanteric bursitis
--- NOTE | 2025-02-22 12:07 | PM.OP ---
Operative Report Date of procedure: February 22, 2025 Surgeon: Michael Donald DO Dipper Fish: Montrell Donald PA-C: PA was necessary for assistance in this case with leg positioning, hip reductions, retraction and protection of neurovascular structures as well as assistance in implantation, assistance in wound closure and dressing application. Procedure: Preop Diagnosis?Right hip degenerative joint disease Post-op diagnosis: Right hip degenerative joint disease Right hip trochanteric bursitis Procedure done: Right total hip arthroplasty?robotic assisted Logan?posterior approach Right hip trochanteric bursectomy Implants: Estela total hip arthroplasty implants 54 mm cluster hole acetabular shell 6.5 mm x (15mmx2) acetabular screws Alpha code E MDM cementless metal liner Femoral stem size #4 high offset [place] insignia hip stem Alpha codeE MDM +4 mm head Surgeon: Michael Donald DO Estimated blood loss: 150 mL IV fluids: 1100 mL Urine output: 250 mL Complications: None Condition: stable Disposition: floor Brief History: Patient's been seen and worked up by myself in the outpatient setting and findings consistent with Right hip degenerative joint disease. He has failed conservative treatment this is causing him severe pain and decreased mobility. We talked about his treatment options as far as nonoperative and operative intervention. he ultimately through shared decision-making would like to proceed with a Right total hip arthroplasty?Logan robotic assisted will plan to do this through posterior approach as this will accommodate for trochanteric bursectomy as stated in her preoperative clinic discussion. we detailed out his risk benefits complications alternatives to surgical and nonsurgical treatment options. Understanding his risk for surgery he elects to proceed with Right total hip arthroplasty robotic assisted Logan utilizing a?posterior approach. All questions answered. He elects proceed with surgery today. Procedure: Patient was seen evaluate in preoperative holding area.? Consent was reviewed and signed with patient.? Correct extremity was then marked.? Patient seen evaluate by anesthesia department once cleared for surgery pt was taken back to the operative suite.? Patient underwent spinal anesthesia per the anesthesia department.? This point time pt was then placed on the operative suite and table.? Pt was then placed in lateral decubitus patient worked with the Right hip up.? Patient was secured in the lateral decubitus position with pegboard. All bony prominences well-padded he was properly secured to the bed.? At this point time the Right lower extremity was then prepped and draped in standard orthopedic fashion with care not to drape out the iliac wing for pelvic array placement.? Final timeout performed.? Patient received appropriate preoperative antibiotics. Started off with establishment of my pelvic array pins.? A small longitudinal incision was made directly over the iliac wing.? Sharp scalpel excision through skin and subcutaneous tissue directly onto bone.? Next I then loaded my pelvic pin.? This was then drilled through the iliac wing corridor with excellent fixation.? Next I then loaded the guide which was placed directly onto bone and then subsequently placed 2 more pins to secure fixation.? Next the pelvic array was then sent had excellent visualization with the [employer] robot and was secured. EKG pad was placed on the distal lateral aspect of the femur and sterile aseptic technique and use as my distal reference point. Next I proceeded with my standard?posterior approach.? Sharp scalpel through skin and subcutaneous tissue this was centered over the greater trochanter.? I then utilized a Hayward elevator over the gluteus nanci fascia.? Next the fascia was then split longitudinally with bipolar electrocautery.? Next a Charnley retractor was then placed.? At this point patient did have a significantly inflamed trochanteric bursa I subsequently performed a trochanteric bursectomy with electrocautery and rongeur. Next a Hohmann was placed underneath the abductors.? A standard full-thickness release of the piriformis and the short external rotators along with the capsule to grade 1 full thick sleeve for later repair was then placed straight down to the lesser trochanter.? Lesser trochanter was then subsequently identified.? Prior to dislocating the hip we then placed our greater trochanter femur checkpoint.? We marked our appropriate checkpoint for referencing on pelvic array.? At this point in time we then established both of our checkpoints as well as referencing for leg lengths I utilized the EKG pad as my distal reference point. The legs were marked and traced to have appropriate position on the drapes to allow for accurate reading.? Preoperative leg lengths set. Once this was then established I then proceeded with dislocation of the femoral head.? At this point Hohmann's were then placed superiorly and inferiorly along the femoral neck.? The sciatic nerve was protected throughout this case.? At this point time I then utilized the Logan robot and referencing point to reference different aspects along the femoral head and neck for my appropriate neck length.? These were referenced on the inferior mid substance as well as up into the superior shoulder of the femoral neck.? This marked my oscillating saw was used to make my femoral neck cut.? Femoral head was then removed. Next the leg was placed in appropriate position and my anterior and?posterior acetabular retractors then placed.? Next I excised the labrum and then remove the pulvinar.? I did do a small release of the inferior capsule which was severely taut to allow for easier placement of my reamers as well as reduction.? Acetabulum was thoroughly irrigated. At this point in time keeping my retractors in place I subsequently loaded up the [employer] robot for my acetabular reaming.?? Next I then set my 54 reamer under the [employer] robot and subsequently held this with appropriate preplanned preop planned version of 40 degrees of abduction angle as well as 20 degrees of anteversion.? This preoperative plan was then subsequently made to accommodate for ranges of motion of impingement?that was assessed preoperatively utilizing the [employer] robotic software technology. I then subsequently reamed this to the appropriate depth with 54mm reamer.? We opened up the acetabular shell clusterhole of the 54 mm [place] this was then loaded onto my impacting system and then I subsequently impacted this to appropriate depth.? This was then removed from the robot and I used the Logan probe at the center to confirm on the CT scan?that this was down on bone which it was.? Next I then drilled and placed 2 acetabular screws with excellent fixation these were drilled and measured to be both 15 mm this was in the?posterior superior aspect of the acetabulum had excellent bite and fixation.? The cup was solid and had excellent press-fit fixation. next, opened the alpha code E MDM cementless liner then subsequently placed in appropriate position and impacted into place.? ? At this point time I then utilized a small rongeur to clear off the shoulder of the femoral neck to clear out the soft tissue envelope for my box osteotome.? Next box osteotome was used a canal finder was placed as well as a lateral lysing rattail rasp.? Once I was appropriately lateralized I then sequentially broached up to a size 4 femoral stem high offset.? This was impacted to appropriate depth. This point I loaded a standard size neck and subsequently reduced the hip.? At this point in time the hip was taken through range of motion before evaluating with the robot on leg lengths.? Patient did appear to have near symmetrical leg lengths however did have slight increased shuck. the hip was taken through range of motion and had good stability with hip flexion and internal rotation.? This point time utilized the Logan probe from our femur checkpoint down to distal checkpoint. Satisfied with this trial implants, at this point I dislocated the hip and then called for my final implant femoral hip stem implant as I was satisfied with the size 4 hip stem insignia high offset. My trials were then removed and then subsequently impacted my Estela insignia hip stem to the same level.? This point in time I trialed up to a +4 mm neck length which with Logan robotic assistance had appropriate leg lengths slightly increased compared to the contralateral however this trial had the best stability with the final hip stem. This was confirmed clinically as well as had excellent stability I felt as though this was best combination with leg lengths being equal as well as with stability and elected for the final +4 mm MDM femoral head. Final MDM femoral head component was then opened and the trunnion was dried and this was impacted with excellent fixation and the hip was subsequently reduced.? We measured our final leg lengths which were appropriate patient had excellent stability in all ranges of motion.? This point time a robotic pins and checkpoints were removed.? I remove the femur checkpoint as well as my pelvic array and iliac wing pins.? Appropriate counts were then made.? This point time thoroughly irrigated the wound bed with pulse lavage.? Vancomycin powder was then sprinkled into the wound bed.? I then performed a standard capsular and external rotator repair utilizing #5 Ethibond and this was tied and repaired through bone tunnels hip, sciatic nerve was protected throughout this portion of the case. Was then kept in abduction external rotation and subsequently closed the fascial layer with Ethibond suture as well as running strata fix suture.? I then closed the deep subcutaneous layer as well as superficial subcutaneous layer with running strata fix suture as well as 3-0strata fix for skin.? Prineo glue dressing was then placed over the skin.? I then irrigated the pelvic array pin site.? There is were then closed with interrupted 0, 2-0 Vicryl suture and Monocryl as well as Prineo glue for the skin.? Incisions were then covered with grover and Silverlon dressing.? Patient was awakened from anesthesia and taken to PACU in stable condition Disposition: Patient taken to PACU in stable condition.? Patient will receive appropriate discharge instructions as well as DVT prophylaxis and pain medication.? Patient will be admitted to the floor for observation should be evaluated by the internal medicine team for medical management.? Patient received appropriate DVT prophylaxis as well as pain medication PT/OT weightbearing as tolerated Right lower extremity with?posterior hip precautions,?Postoperative Abx and TXA.? We will follow-up with patient in the office in 2 weeks.? Patient understands agrees with current plan.? All questions answered.
--- NOTE | 2025-02-22 12:36 | XR_ITS ---
WS: [id number] Exam: XR hip RT 2-3V wo/w pel* [id number] Date/Time of Exam: 02/22/2025 12:42 PM Reason For Exam: post op ISSAC RIGHT total hip prosthesis is in place in satisfactory position. Postop changes in the adjacent soft tissues. XR/XR hip RT 2-3V wo/w pel* [id number] IMPRESSION: 1. RIGHT total hip replacement in satisfactory position.
--- NOTE | 2025-02-22 12:44 | PM.PACU ---
PACU note Narrative: Patient is a 64-year-old male that just underwent a right total hip arthroplasty. Pt transferred to PACU in stable condition. Dressing is dry. pt is awake and alert. Distal pulses are palpable toes are warm and well-perfused. Cap refill is normal and under 2 seconds. Unable to perform any further assessment due to residual spinal block. Pain is controlled. Exam: awake Disposition: admitted
--- NOTE | 2025-02-22 12:50 | ANE.PACU2 ---
Inpatient post-anesthesia follow up: Airway intact: Yes Vital signs: Temperature 97.5 F Pulse Rate 68 Respiratory Rate 16 Blood Pressure 95/62 Pulse Oximetry 96 Oxygen Delivery Me thod Room Air Oxygen Flow Rate Fraction of Inspir ed Oxygen Hydration adequate: Yes Nausea and vomiting: No Pain level: 1 Mental status: Baseline
--- NOTE | 2025-02-22 13:05 | PC.NURSE ---
1255 - accepted into room 261 with NORY Lutz at side - pt in no distress upon this nurse exiting care - BP 95/62 - pulse 72 - 94% RA - temp 97.5
--- NOTE | 2025-02-22 13:54 | PM.CONSULT ---
Providers/Reason For Consult Consulting Physician/Specialty*: Hospitalist Reason for Consult*: Medical comorbidities Requesting Physician: Dr. Donald Attending Physician: Michael Donald DO Primary Care Provider: Bipin Knott MD History of Present Illness History of Present Illness Lalit Cruz is a 64 year old male with past medical history of hyperlipidemia, asthma underwent right total hip arthroplasty today with orthopedic team. EBL of 150 cc. Medical team consulted for medical comorbidities. Patient seen postoperatively. Laying comfortably in bed. Awake and alert. Denies any active complaint. Review of Systems General: Reports: 10 or more systems reviewed and unremarkable except in HPI and below Const: Denies: fever(s), chills, body aches, change in appetite, change in weight, malaise, night sweats, diaphoresis, change in sleep pattern, daytime sleepiness or snoring Eyes: Denies: change in vision, blurry vision, photophobia, eye discomfort or eye discharge ENMT: Denies: throat pain, enlarged tonsils, hoarseness, mouth pain, oral sores, dry mouth, tinnitus, nasal congestion or post nasal drip Card: Denies: chest pain, palpitations, irregular heart rhythm, edema, swelling of feet/ankles, lightheadedness, syncope, pre-syncope, dyspnea on exertion, orthopnea, leg pain with exertion or acrocyanosis Resp: Denies: dyspnea, productive cough, non-productive cough, wheezing, stridor, pain on inspiration, change in phlegm color, hemoptysis or chest congestion GI: Denies: abdominal pain, nausea, vomiting, hematemesis, coffee ground emesis, dysphagia, heartburn, diarrhea, constipation, bloating, GI cramping, change in bowel habits, pain on defecation, hematochezia or melena : Denies: flank pain, difficulty urinating, dysuria, urinary frequency, urinary urgency, urinary hesitancy, urinary dribbling, difficulty starting urination, change in urine stream, nocturia or hematuria Musc: Denies: neck pain, back pain, extremity pain, joint pain, joint swelling, joint redness, joint stiffness or limited range of motion Neuro: Denies: headache(s), numbness in extremities, weakness in extremities, sensory changes, lack of coordination, difficulty walking, frequent falls, dizziness, vertigo, confusion, Slurred speech present, difficulty communicating thoughts or seizure-like activity Psych: Denies: anxiety, depression, mood swings, panic attacks, hopelessness or irritability Endo: Denies: polyuria, polydipsia, tired all the time, cold intolerance, excessive sweating, flushing or heat intolerance Vignesh/Lymph: Denies: easy bruising or easy bleeding All/Imm: Denies: tongue swelling, facial swelling or acute wheezing Medications/Allergies Home Medications ?Medication ?Instructions ?Recorded ?Confirmed ?Last Taken ?Type tamsulosin 0.4 mg capsule 0.4 mg PO DAILY 06/16/21 02/18/25 07/17/21 History pantoprazole 40 mg tablet,delayed 40 mg PO DAILY 10/19/21 02/18/25 Unknown History release fluticasone 250 mcg-salmeterol 50 1 inh inhalation BID #60 ea 01/24/23 02/18/25 Unknown Rx mcg/dose blistr powdr for inhalation (Advair Diskus) Allergies Allergy/AdvReac Type Severity Reaction Status Date / Time No Known Allergies Allergy Verified 02/04/25 09:49 PFSH Acute PFSH: Medical History (Updated 02/22/25 @ 13:56 by Kurt Bro MD) Trochanteric bursitis, right hip Degenerative joint disease of right hip Asthma Cholecystitis Pancreatitis Hyperlipidemia Surgical History (Updated 02/22/25 @ 13:56 by Kurt Bro MD) Status post laparoscopic cholecystectomy H/O esophagogastroduodenoscopy (07/19/21) History of colonoscopy (07/19/21) History of inguinal hernia repair, bilateral Family History Other CAD (coronary artery disease) Lymphoma Social History Smoking and tobacco/nicotine status: never used tobacco/nicotine Alcohol intake: former Substance/Drug Use: never Lives independently: Yes Household members: spouse Marital status: Current occupational status: retired Vitals/I&O/Wt Last Vital Signs Temp 97.5 F L 02/22/25 12:51 Pulse 68 02/22/25 12:51 Resp 16 02/22/25 12:51 BP 95/62 02/22/25 12:51 Pulse Ox 96 02/22/25 12:51 O2 Del Method Room Air 02/22/25 12:48 02/21/25 02/22/25 02/22/25 22:59 06:59 14:59 Intake Total 467 / 467 Output Total 400 / 400 Balance / Weight last 48 hrs Weight 86.183 kg Physical Exam Narrative: General: No acute distress, AO x3 HEENT: PERRLA, pupils bilaterally equal and reactive Chest: Normal vesicular breath sounds, no added sounds, equal good air entry bilaterally CVS: S1-S2 regular, no murmurs, no tachycardia, no gallops, no rubs Abdomen: Soft, nontender, no organomegaly, bowel sounds present Neuro: No focal deficits, no facial deformity, AO x3, power 5/5 in all limbs Urinary Catheter Management: Herrera: Cath Placed During This Visit: yes Urinary Catheter Date of Insertion: 02/22/25 Urinary Catheter Time of Insertion: 09:57 Data 02/22/25 07:20 02/22/25 07:20 A&P Assessment and plan 1. S/P total right hip arthroplasty: Monitor hemoglobin. Physical therapy. Postoperative anticoagulation in place. Out of bed to chair. Incentive spirometry. 2. Encounter for postoperative care: 3. Asthma: DuoNeb as needed. Oxygen supplementation keeping saturation above 90%. Plan: Check A1c, lipid panel, iron panel, folate and B12 levels. Continue home dose of Flomax Full code Regular diet Eliquis 2.5 mg twice daily will be sufficient for DVT prophylaxis Protonix OPD prophylaxis Thank you for involving us in care of Mr. Cruz. PDMP PDMP Reviewed: Not Reviewed Consult Attestations Medical Necessity Statement: As per primary team Diagnoses S/P total right hip arthroplasty Z96.641 Encounter for postoperative care Z48.89 Asthma J45.909
[2025-02-22 15:08] LABS: Estmated Average Glucose 117; Hemoglobin A1C 5.7 % (4.0-6.0)
[2025-02-22 15:14] LABS: Iron 72 ug/dL (59-158); Thyroid Stimulating Hormone 4.08 uIU/mL (0.27-4.20); Total Iron Binding Capacity 259 mcg/dl; Unsaturated Iron Binding 187 ug/dL (112-347); Vitamin B12 804 pg/mL (232-1245)
[2025-02-22] MEDS: tranexamic acid 1,000 MG/100 ML PREMIX 600 MG IV (15:21)
[2025-02-22] MEDS: chlorhexidine gluconate 0.12% Btl 473 mL 30 ML MUCOUS MEM ×2 (16:57→21:13)
[2025-02-22] MEDS: mupirocin oint 22 gm 1 APPLIC NASAL (16:57)
[2025-02-22] MEDS: oxyCODONE 5 mg IR Tab/Cap PO ×2 (16:57→21:11)
[2025-02-22] MEDS: calcium carb-vit d 600mg/400unit 1 Tablet 1 EACH PO (16:57)
[2025-02-22] MEDS: sennosides-docusate Tablet 2 TAB PO (16:57)
[2025-02-23] VITALS (9 sets, daily range): BP systolic 105–184; BP diastolic 65–70; PULSE 61–89; RESP 16–19; TEMP 36.4–37.1; O2SAT 94–98
[2025-02-23] MEDS: ceFAZolin 2,000 MG in sodium chloride 0.9% (plus) 50 ML 100 MG IV ×2 (01:34→08:42)
[2025-02-23] MEDS: oxyCODONE 5 mg IR Tab/Cap PO ×3 (01:43→12:41)
[2025-02-23] MEDS: multivitamin therapeutic Tablet 1 TAB PO (04:31)
[2025-02-23] MEDS: calcium carb-vit d 600mg/400unit 1 Tablet 1 EACH PO (04:31)
[2025-02-23] MEDS: mupirocin oint 22 gm 1 APPLIC NASAL (04:31)
[2025-02-23] MEDS: chlorhexidine gluconate 0.12% Btl 473 mL 30 ML MUCOUS MEM ×2 (04:32→10:56)
[2025-02-23] MEDS: HYDROmorphone 0.5 MG/0.5 ML INJ IVP (04:48)
[2025-02-23 04:55] LABS: Hematocrit 34.1 % (37-53); Hemoglobin 11.70 g/dL (11.27-16.99); Mean Corpuscular HGB Conc 34.3 g/dL (30-55); Mean Corpuscular Hemoglobin 29.8 pg (27-33); Mean Corpuscular Volume 87.0 fl (82-101); Nucleated Red Blood Cells % 0 %; Platelet Count 216 10^3/cmm (157-399); Red Blood Count 3.92 10^6/uL (3.85-5.65); White Blood Count 9.12 10^3/uL (3.29-11.43)
[2025-02-23 05:18] LABS: Anion Gap 12.8 (5-19); Blood Urea Nitrogen 17 mg/dL (8-23); Calcium 8.2 mg/dL (8.5-10.5); Carbon Dioxide 25 mmol/L (22-29); Chloride 101 mmol/L (98-107); Creatinine Clr Calc Pharmacy 100.5593; Glucose 115 mg/dL (65-115); Osmolality Calculated 282 mOsm/kg (285-295); Potassium 3.8 mmol/L (3.5-5.1); Sodium 135 mmol/L (136-145)
[2025-02-23 05:19] LABS: Cholesterol 202 mg/dL (0-200); HDL Cholesterol 36 mg/dL (60-100); Triglycerides 135 mg/dL (0-150); VLDL Cholestrol Calculation 27 mg/dL (0-30)
[2025-02-23] MEDS: acetaminophen 1,000 MG/100 ML PIGGYBACK 400 MG IV (08:40)
[2025-02-23] MEDS: APIXABAN 2.5 MG TABLET PO (08:41)
--- NOTE | 2025-02-23 09:34 | P.PN_ITS ---
Subjective 2 Subjective: No acute events overnight. Has remained hemodynamically stable. Slightly anxious today morning. States feeling a lot better. Worked with physical therapy. Vitals/I&O/Wt Last Vital Signs Temp 98.8 F 02/23/25 07:30 Pulse 88 02/23/25 07:40 Resp 18 02/23/25 08:41 BP 184/70 02/23/25 07:30 Pulse Ox 94 02/23/25 07:40 O2 Del Method Room Air 02/23/25 07:40 02/22/25 02/23/25 02/23/25 22:59 06:59 14:59 Intake Total 1175 / 1642 350 / 1992 1510 / 1510 Output Total 300 / 700 300 / 1000 300 / 300 Balance 875 / 942 50 / 992 1210 / 1210 Weight last 48 hrs Weight 85.729 kg Weight 86.183 kg Weight 86.183 kg Physical Exam 2 Narrative: General: No acute distress, AO x3 HEENT: PERRLA, pupils bilaterally equal and reactive Chest: Normal vesicular breath sounds, no added sounds, equal good air entry bilaterally CVS: S1-S2 regular, no murmurs, no tachycardia, no gallops, no rubs Abdomen: Soft, nontender, no organomegaly, bowel sounds present Neuro: No focal deficits, no facial deformity, AO x3, power 5/5 in all limbs Urinary Catheter Management: Herrera: Cath Placed During This Visit: yes, but has since been removed by the nurse Reason for Continuing Indwelling Catheter: Decision to DC Catheter Urinary Catheter Date of Insertion: 02/22/25 Urinary Catheter Time of Insertion: 09:57 Date Urinary Catheter Removed: 02/22/25 Time Urinary Catheter Discontinued: 15:32 Data 02/23/25 04:16 02/23/25 04:16 A&P Assessment and plan 1. S/P total right hip arthroplasty: Monitor hemoglobin. Physical therapy. Postoperative anticoagulation in place. Out of bed to chair. Incentive spirometry. 2. Encounter for postoperative care: 3. Asthma: DuoNeb as needed. Oxygen supplementation keeping saturation above 90%. Plan: Check A1c, lipid panel, iron panel, folate and B12 levels. Continue home dose of Flomax Full code Regular diet Eliquis 2.5 mg twice daily will be sufficient for DVT prophylaxis Protonix OPD prophylaxis Thank you for involving us in care of Mr. Cruz. Plan for the day: Patient is stable to be discharged from medical standpoint. Advised would be to check blood pressures at least twice a week and maintain a blood pressure diary. Goal blood pressure should be less than 140/90 mmHg. Appreciate lipid panel to be abnormal. Patient does not want to be on medications for now. Discussed in detail for the need to have better control cholesterols to prevent him from ACS or stroke. He verbalizes understanding and would want to hold off on medications for now. PDMP PDMP Reviewed: Not Reviewed Attestations 2 Medical Necessity Statement*: As per primary. Diagnoses S/P total right hip arthroplasty Z96.641 Encounter for postoperative care Z48.89 Asthma J45.909
--- NOTE | 2025-02-23 10:15 | PC.NURSE ---
Pt complaining of hip pain this morning. This nurse informed pt that I would take a look in his chart to see what pain medication could be given for pain. Pt felt it was unrelated to his hip surgery, although he complains of pain on the right side. Pt says he will talk to his about getting biofreeze and calcium. This nurse informed patient that it would also be beneficial for him to get up to a chair and work with Physical Therapy today. Pt stated that he wasn't sure he wanted to work with therapy this morning. This nurse educated pt on the importance of complying with therapy in order to see if he was capable of being discharged home safely. Pt states I think I will ask him to stay another night. I don't really want to go home today. A short time after previous conversation, this nurse went back to patient room to administer morning meds. Pt complaining of burning with saline flush. IV site does not appear to be irritated or infiltrated and flushes without any issue. Patient demanded to Push that slower! [facility] practical nursing instructor was pushing slowly prior to pt yelling this. Patient also complains of burning with urination since removal of dickinson catheter. This nurse explained to pt that there can sometimes be discomfort following the removal of a catheter. Patient requested triple antibiotic ointment be injected into his penis as something is blocking me from peeing This nurse explained that I was unable to inject anything into his urethra and doing so would not be appropriate measures for possible urinary retention, but I would bladder scan him. Very upset, pt states I do not need a scan, [place]! I need an ultrasound! At this time, this nurse went to charge nurse for her to help explain our protocol to pt. Pt agreed to bladder scan. Pt had 58 in his bladder and does not appear to be retaining any urine. Dr. Miller notified of complaints and placed a new order for topical lidocaine for discomfort.
[2025-02-23] MEDS: lidocaine 2% Urojet 20 mL TOPICAL (10:55)
--- NOTE | 2025-02-23 13:36 | P.DS_ITS ---
Discharge Providers Date of Admission: 02/23/25 06:16 Date of Discharge: February 23, 2025 Attending Provider at Admission: Michael Donald DO Attending Provider at Discharge: Michael Donald DO Consults: Hospitalist?Dr. Bro Primary Care Provider: Bipin Knott MD Diagnoses at Discharge Discharge Diagnosis 1. S/P total right hip arthroplasty: 2. Encounter for postoperative care: 3. Asthma: Reason for Visit Reason for Visit: M16.11 Brief History: Status post right total hip arthroplasty?Logan robotic assisted Hospital Course Hospital Course Patient was brought to the hospital through the preoperative holding area with plan for right total hip arthroplasty for right hip dengerative joint disease. Once cleared by anesthesia for surgery subsequently was taken back to the operative suite underwent anesthesia per the anesthesia department and then underwent right total hip arthroplasty with Logan robotic assistance posterior approach without any complications. Patient was then subsequently taken back to PACU in stable condition recovering well. Once recovered, patient was then subsequently admitted to the floor postoperatively. Internal medicine was consulted for medical management assistance. Patient weightbearing as tolerated to the right lower extremity, posterior hip precautions. PT/OT. Pain control. DVT prophylaxis. Postoperative antibiotics and TXA. dressing was change as needed. Internal medicine was on board and appreciate their medical management and assistance. Pt was determined on postoperative day 1 the patient was stable for discharge from orthopedic as well as internal medicine standpoint. Patient's labs were monitored daily. Patient will receive appropriate pain medication as well as DVT prophylaxis postoperatively. Appropriate discharge instructions as well. Patient was then discharged in stable condition. Patient will discharge home. Pt will follow-up with Orthopedics in the office in 2 weeks. Patient understands and agrees with current plan. All questions answered. Understands there is any issues or concerns and contact the office. Physical Exam Narrative: Right hip examination: Dressing on in place, clean dry and intact. No evidence of saturation on alana dressing & Silverlon dressing, patient has normal postoperative swelling and tenderness to palpation to the hip. Compartments are soft compressible,'s calf soft and nontender. Sensations intact to light touch distally. Distal pulses a re palpable. Patient is able to wiggle toes as well as plantarflex and dorsiflex ankle. Urinary Catheter Management: Herrera: Cath Placed During This Visit: yes, but has since been removed by the nurse Reason for Continuing Indwelling Catheter: Decision to DC Catheter Urinary Catheter Date of Insertion: 02/22/25 Urinary Catheter Time of Insertion: 09:57 Date Urinary Catheter Removed: 02/22/25 Time Urinary Catheter Discontinued: 15:32 Discharge Data Studies Completed and Pending Completed Studies During Hospitalization Category Date Time Status XR hip RT 2-3V wo/w pel* [id number] Routine Exams 02/22/25 12:36 Completed Pending at discharge Category Date Time Status Basic Metabolic Panel AM LABS Lab 02/24/25 04:00 Ordered Basic Metabolic Panel AM LABS Lab 02/25/25 04:00 Ordered Complete Blood Count w/Auto AM LABS Lab 02/24/25 04:00 Ordered Complete Blood Count w/Auto AM LABS Lab 02/25/25 04:00 Ordered Radiology Impressions Hip/Pelvis X-Ray 02/22/25 12:36 IMPRESSION: 1. RIGHT total hip replacement in satisfactory position. Laboratory Results WBC 9.12 10^3/uL (3.29-11.43) 02/23/25 04:16 RBC 3.92 10^6/uL (3.85-5.65) 02/23/25 04:16 Hgb 11.70 g/dL (11.27-16.99) 02/23/25 04:16 Hct 34.1 % (37-53) L 02/23/25 04:16 MCV 87.0 fl (82-101) 02/23/25 04:16 MCH 29.8 pg (27-33) 02/23/25 04:16 MCHC 34.3 g/dL (30-55) 02/23/25 04:16 RDW 12.5 % (12.1-15.1) 02/23/25 04:16 Plt Count 216 10^3/cmm (157-399) 02/23/25 04:16 MPV 10.2 fL (7.4-10.4) 02/23/25 04:16 Neut % (Auto) 74.9 % 02/23/25 04:16 Lymph % (Auto) 15.2 % 02/23/25 04:16 Crowley % (Auto) 8.6 % 02/23/25 04:16 Eos % (Auto) 0.9 % 02/23/25 04:16 Baso % (Auto) 0.2 % 02/23/25 04:16 Neut # (Auto) 6.83 10^3/uL (1.8-7.7) 02/23/25 04:16 Lymph # (Auto) 1.4 10^3/uL (0.8-4.8) 02/23/25 04:16 Crowley # (Auto) 0.8 10^3/uL (0.2-0.9) 02/23/25 04:16 Eos # (Auto) 0.1 10^3/uL (0.0-0.8) 02/23/25 04:16 Baso # (Auto) 0.0 10^3/uL (0.0-0.1) 02/23/25 04:16 Nucleated RBC % (auto) 0 % 02/23/25 04:16 Nucleated RBCs # 0.0 /100WBC 02/23/25 04:16 Sodium 135 mmol/L (136-145) L 02/23/25 04:16 Potassium 3.8 mmol/L (3.5-5.1) 02/23/25 04:16 Chloride 101 mmol/L (98-107) 02/23/25 04:16 Carbon Dioxide 25 mmol/L (22-29) 02/23/25 04:16 Anion Gap 12.8 (5-19) 02/23/25 04:16 BUN 17 mg/dL (8-23) 02/23/25 04:16 Creatinine 0.8 mg/dL (0.7-1.2) 02/23/25 04:16 GFR Calculation 96.7 mL/min (90-130) 02/23/25 04:16 Glucose 115 mg/dL (65-115) 02/23/25 04:16 Estimat Average Glucose 117 02/22/25 07:20 Hemoglobin A1c 5.7 % (4.0-6.0) 02/22/25 07:20 Calculated Osmolality 282 mOsm/kg (285-295) L 02/23/25 04:16 Calcium 8.2 mg/dL (8.5-10.5) L 02/23/25 04:16 Iron 72 ug/dL (59-158) 02/22/25 07:20 TIBC 259 mcg/dl 02/22/25 07:20 % Saturation 27.7 % (20-50) 02/22/25 07:20 Unsat Iron Binding 187 ug/dL (112-347) 02/22/25 07:20 Triglycerides 135 mg/dL (0-150) 02/23/25 04:16 Cholesterol 202 mg/dL (0-200) H 02/23/25 04:16 LDL Cholesterol, Calc 139 mg/dL (50-129) H 02/23/25 04:16 Total VLDL Cholesterol 27 mg/dL (0-30) 02/23/25 04:16 HDL Cholesterol 36 mg/dL (60-100) L 02/23/25 04:16 Cholesterol/HDL Ratio 5.61 mg/dL (1.0-5.00) H 02/23/25 04:16 Vitamin B12 804 pg/mL (232-1245) 02/22/25 07:20 Folate 5.8 ng/mL (4.5-32.2) 02/23/25 04:16 TSH 4.08 uIU/mL (0.27-4.20) 02/22/25 07:20 Blood Type O Positive 02/22/25 07:20 Rho(D) Type Rh positive 02/22/25 07:20 Antibody Screen Negative 02/22/25 07:20 Vitals Last Vital Signs Temp 98.7 F 02/23/25 11:44 Pulse 89 02/23/25 11:44 Resp 18 02/23/25 12:41 BP 105/68 02/23/25 11:44 Pulse Ox 94 02/23/25 07:40 O2 Del Method Room Air 02/23/25 11:44 Discharge Plan Discharge Patient Disposition: Home Health Service Condition: Stable Prescriptions: New Eliquis 2.5 mg tablet 2.5 mg PO BID 35 Days Qty: 70 0RF cefadroxil 500 mg capsule 500 mg PO BID 7 Days Qty: 14 0RF oxycodone 5 mg tablet 5 mg PO Q6H PRN (Reason: pain postop) 7 Days Qty: 28 0RF calcium carbonate-vitamin D3 [Calcium 600 + D(3)] 600 mg-10 mcg (400 unit) t ablet 1 tab PO DAILY 30 Days Qty: 30 0RF cyclobenzaprine 10 mg tablet 10 mg PO TID PRN (Reason: muscle spasm) 7 Days Qty: 21 0RF Continued tamsulosin 0.4 mg capsule 0.4 mg PO DAILY fluticasone propion-salmeterol [Advair Diskus] 250-50 mcg/dose blister with device 1 inh inhalation BID Qty: 60 11RF pantoprazole 40 mg tablet,delayed release (DR/EC) 40 mg PO DAILY Trouble Operator OK for DC: Hospitalist Discharge Order = DC NOW: Discharge Order (Routine); Ordered 02/23/25 Ordered By: Michael Donald Other Ambulatory Orders: Physical Therapy Eval and Treat Outpatient (Order) Timeframe: 3 Days Facility: [facility] - Location: Physical Therapy Ordered By: Michael Donald Referrals: [facility] Home Care ([facility]) [Outside] Michael Donald DO [Physician, Orthopedics] - 03/10/25 10:00 am Bipin Knott MD [Primary Care Provider, Family Practice] - 03/01/25 2:20 pm Referral Note: Discharge Diet: Regular and Cardiac Discharge Activity: Limit activity as instructed and Use walker/crutches as instructed Patient Instructions: Cefadroxil (By mouth), Ondansetron (By mouth), Apixaban (By mouth), Acute Wound Care (DC), Total Hip Replacement (DC), Opioid Safety, Post Anesthesia Care, Patient Portal & [place] Instructions Activity Restrictions/Additional Instructions: Orthopedic discharge instructions: operative incision= Alana Dressing--Keep dressing on and dry. After 3 days you can remove some of the dressing and shower. disconnect battery pack when showering. Alana dressing will stay on until follow up appt in 2 weeks. The battery pack for the dressing will at 5-7 days. Battery pack can be removed and discarded once batteries . Patient should keep dressings clean dry and intact Okay to shower over dressings if they do become wet these should be removed and new dressings applied second small incision= Keep incisions clean dry and intact, leave Silverlon bandage dressings on in place for 7 days after that may rinse incisions with warm soapy water pat dry and redress with a dry dressing Weight-bear as tolerated to operative lower extremity Posterior hip precautions as instructed by physical therapy--posterior avoid hip flexion past 90 degrees, adduction, avoid internal rotation When sleeping or lying in bed in supine position use abduction pillow to prevent legs from crossing midline Ice as needed for pain and swelling Take pain medication as prescribed Take antinausea medication as needed Take antibiotic as prescribed May supplement for pain with Tylenol [id number] as needed(1000 mg every 8 hours-do not exceed more than 3000mg in 24-hour period) Supplement with Citracal vitamin D for bone health and healing Pain medication can cause constipation. take [id number] stool softeners and or MiraLAX. Take blood thinner as prescribed (Eliquis) Follow-up in the orthopedic office in 2 weeks Contact the office for any questions or concerns Discharge Attestations Time Spent in Discharge Care*: less than 30 min Quality Metrics Clinical Quality Measures [ No reported AMI, CVA or VTE this stay] Coding Level of Care Code Acute Code for Chg Fwd Diagnoses S/P total right hip arthroplasty Z96.641 Encounter for postoperative care Z48.89 Asthma J45.909
== END 2025-02-23 15:24 | disposition home health service (06) ==
LOC: OR 07:08
PROVIDERS: Physician Assistant; Student in an Organized Health Care Education/Training Program; Admitting Provider Student in an Organized Health Care Education/Training Program; PCP Family Medicine; Visit Provider Student in an Organized Health Care Education/Training Program
PROC: 8E0Y0CZ Robotic Assisted Procedure of Lower Extremity, Open Approach (ICD-10-PCS; CPT 27130; principal; 2025-02-22 09:25)
DX: M16.11 Unilateral primary osteoarthritis, right hip (principal); M70.61 Trochanteric bursitis, right hip; K21.9 Gastro-esophageal reflux disease without esophagitis; E78.5 Hyperlipidemia, unspecified; J45.909 Unspecified asthma, uncomplicated
CPT/HCPCS: 27130; 20985; 27062; 36415; 51702; 51798; 73502; 80048; 80061; 82607; 82746; 83036; 83540; 83550; 84443; 85025; 86850; 86900; 97110; 97116; 97161; 97167; 97530; C1713; C1776; G0378; J0131; J0690; J1171; J1885; J2250; J2704; J3373; J3490; J7030; J7120; J9999

== ENCOUNTER → 2025-03-10 10:03 | Outpatient (BNVA) | payer BC, SELFPAY | PROVIDERS: PCP Family Medicine; Visit Provider Physician Assistant | DX: Z98.890 Other specified postprocedural states (principal); Z96.641 Presence of right artificial hip joint | CPT/HCPCS: 73502 ==

== ENCOUNTER 2025-03-24 12:57 | Outpatient (RCR) | payer BC, SELFPAY | END 2025-04-14 23:59 | disposition home or self-care (01) | LOC: SPT 12:57 | PROVIDERS: PCP Family Medicine; Visit Provider Student in an Organized Health Care Education/Training Program | DX: Z47.1 Aftercare following joint replacement surgery (principal); Z96.641 Presence of right artificial hip joint | CPT/HCPCS: 97110; 97161 ==